=== PATIENT | male | born 1935 | race Caucasian/White ===

== ENCOUNTER → 2023-06-19 06:53 | Outpatient (REF) | payer MEDICARE, BC, SELFPAY ==
[2023-06-19 08:30] LABS: % Basophils 0.8 % (0-2); % Eosinophils 7.4 % (0-6); % Immature Granulocytes 0.2 % (0-0.5); % Lymphocytes 28.6 % (20.5-51.1); Absolute Eosinophils 0.4 10^3/uL (0-0.7); Absolute Lymphocytes 1.5 10^3/uL (1.2-3.4); Absolute Monocytes 0.5 10^3/uL (0.1-0.6); Absolute Neutrophils 2.8 10^3/uL (1.4-6.5); Hematocrit 40.7 % (39.0-52.0); Hemoglobin 13.7 g/dL (13.0-18.0); Mean Corp Hgb Conc. 33.7 g/dL (33.0-37.0); Mean Corpuscular Hgb 29.5 pg (27.0-31.0); Mean Corpuscular Volume 87.7 fL (80.0-94.0); Mean Platelet Volume 10.1 fL (7.4-10.4); Nucleated Red Blood Cells % 0 % (-); Platelet Count 166 10^3/uL (130-400); Red Blood Cell Count 4.64 10^6/uL (4.70-6.10); Red Cell Dist. Width 13.3 % (11.5-14.5); White Blood Cell Count 5.1 10^3/uL (4.8-10.8)
[2023-06-19 09:14] LABS: TSH Reflex To Free T4 3.27 uIU/ml (0.47-4.68)
[2023-06-19 10:38] LABS: Folate 15.2 ng/ml (2.76-20); Vitamin B12 993 pg/ml (239-931)
[2023-06-24 13:41] LABS: Syphilis/T. pallidum Ab Reflex Negative (Negative)
== END ==
LOC: HWLAB 06:53
PROVIDERS: ATTENDING PHYSICIAN Internal Medicine
DX: R41.3 Other amnesia (principal)
CPT/HCPCS: 36415; 82607; 82746; 84443; 85025; 86780

== ENCOUNTER → 2023-08-15 10:43 | Outpatient (REF) | payer MEDICARE, BC, SELFPAY ==
[2023-08-15 14:15] LABS: Glycohemoglobin (HgbA1c) 6.5 % (4.0-5.6)
[2023-08-15 16:36] LABS: ALT (SGPT) 79 U/L (0-50); AST (SGOT) 32 U/L (17-59); Albumin 3.6 g/dl (3.5-5.0); Alkaline Phosphatase 143 U/L (38-126); Blood Urea Nitrogen 25 mg/dl (9-20); Calcium 9.8 mg/dl (8.4-10.2); Carbon Dioxide 26 mmol/L (22-30); Chloride 107 mmol/L (98-107); Glucose 102 mg/dl (70-99); HDL Cholesterol 43 mg/dl; LDL Cholesterol, Calculated 56 mg/dl; Potassium 4.1 mmol/L (3.5-5.1); Sodium 138 mmol/L (135-145); Total Bilirubin 0.7 mg/dl (0.2-1.3); Total Cholesterol 120 mg/dl (50-199); Total Protein 5.7 g/dl (6.3-8.2); Triglyceride 108 mg/dl (10-149); Very Low Density Lipoprotein 21 mg/dl (0-30); eGFR 58.17
[2023-08-15 17:07] LABS: PSA, Total - Diagnostic 6.55 ng/ml (0.0-4.0)
== END ==
LOC: HWLAB 10:43
PROVIDERS: ATTENDING PHYSICIAN Internal Medicine
DX: E78.5 Hyperlipidemia, unspecified (principal); R73.01 Impaired fasting glucose; Z85.46 Personal history of malignant neoplasm of prostate
CPT/HCPCS: 36415; 80053; 80061; 83036; 84153

== ENCOUNTER 2023-08-18 11:48 | Inpatient (IN) | payer MEDICARE, BC, SELFPAY ==
[2023-08-18 09:08] VITALS: BP 93/47; BMI 26.6
[2023-08-18 09:21] LABS: % Basophils 0.4 % (0-2); % Eosinophils 0.6 % (0-6); % Immature Granulocytes 0.3 % (0-0.5); % Lymphocytes 7.1 % (20.5-51.1); % Monocytes 9.9 % (1.7-9.3); % Neutrophils 81.7 % (42.2-75.2); Absolute Basophils 0.1 10^3/uL (0-0.2); Absolute Eosinophils 0.1 10^3/uL (0-0.7); Absolute Monocytes 1.4 10^3/uL (0.1-0.6); Absolute Neutrophils 11.3 10^3/uL (1.4-6.5); Hematocrit 39.1 % (39.0-52.0); Hemoglobin 12.9 g/dL (13.0-18.0); Mean Corpuscular Hgb 28.8 pg (27.0-31.0); Mean Corpuscular Volume 87.3 fL (80.0-94.0); Mean Platelet Volume 11.1 fL (7.4-10.4); Nucleated Red Blood Cells % 0 % (-); Platelet Count 222 10^3/uL (130-400); Red Blood Cell Count 4.48 10^6/uL (4.70-6.10); Red Cell Dist. Width 14.3 % (11.5-14.5); White Blood Cell Count 13.9 10^3/uL (4.8-10.8)
[2023-08-18 09:32] LABS: ALT (SGPT) 36 U/L (0-50); AST (SGOT) 22 U/L (17-59); Alkaline Phosphatase 116 U/L (38-126); Blood Urea Nitrogen 37 mg/dl (9-20); Calcium 9.3 mg/dl (8.4-10.2); Carbon Dioxide 24 mmol/L (22-30); Chloride 103 mmol/L (98-107); Estimated Creatinine Clearance 30 ml/min; Glucose 118 mg/dl (70-99); Potassium 3.9 mmol/L (3.5-5.1); Sodium 136 mmol/L (135-145); Total Bilirubin 0.8 mg/dl (0.2-1.3); eGFR 41.19
[2023-08-18 09:40] LABS: Lipase 30 U/L (23-300)
--- NOTE | 2023-08-18 09:55 | ED.GENMED ---
History of Present Illness
General
Chief Complaint: Weakness
Source: patient
Exam Limitations: none
Time Seen by Provider: 08/18/23 09:42
Nursing documentation reviewed up to this point in time: agreed with
Travel History
Have you had any contact with someone who has COVID-19?: No
Do you have any symptoms of coronavirus? Fever > 100 degrees, chills, cough, shortness of breath, sore throat, loss of taste or smell, muscle aches, or headache?: No
History of Present Illness
History of Present Illness:
Patient presents to ED secondary to persistent diarrhea with decreased appetite and generalized weakness over the past 1 week. Patient states that his symptoms started 2 days after eating at a local restaurant, consisting of shrimp and cheese.
Denies fever or chills. Denies nausea or vomiting. Denies rash. Denies headache. Denies recent change in medications. Denies recent treatment with antibiotics. Denies previous history of similar symptoms. Denies sick contact. Denies recent
travel.
Past History
Past History
ED Past Medical History: HTN, Hypercholesterolemia and Other (sciatica)
ED Past Surgical History: Orthopedic (recurrent bursitis left knee)
Social History
Tobacco: Non-smoker
Personal: Single
Employment: Employed
Review of Systems
Review of Systems
Allergies reviewed?: Yes
All Other Systems: ROS reviewed and negative except as documented in HPI and ROS
Constitutional: Reports no symptoms; Denies fever or chills
EENT: Reports no symptoms
Respiratory: Reports no symptoms
Cardiac: Reports no symptoms
ABD/GI: Reports abdominal pain and diarrhea; Denies nausea or vomiting
: Reports no symptoms
Musculoskeletal: Reports no symptoms
Skin: Reports no symptoms
Neurological: Reports dizzy and weakness
Phy Exam
Physical Exam
Physical Exam:
Physical Exam
General: mild distress, not acutely ill. afebrile
Head: nc/at. eomi
Neck: supple. no meningeal signs.
Heart: s1/s2 regular rate and rhythm, no murmur. equal radial pulses.
Lungs: no acute respiratory distress. clear bilaterally
Abdomen: normal bowel sounds. mild left sided abdominal tenderness, LLQ>LUQ
Neuro: alert and oriented. no focal neurological deficits
Skin: no rash
Psychiatric: well kept. interactive and cooperative
Extremities: no edema. no calf tenderness.
Course
Orders/Labs/Results
Orders:
Orders
08/18/23 09:08
EKG [Electrocardiogram (*1)] Urgent
Reason for Study: Chest Pain
EKG- Treatment ONCE
08/18/23 09:13
Complete Blood Count/With Diff Urgent
Comprehensive Metabolic Panel Urgent
Lipase Urgent
Magnesium Urgent
Comment: ADD ON
08/18/23 09:53
Add On- LAB Urgent
Tests Added?: magnesium
0.9% Sodium Chloride 1000 ml [Nss] 1,000 ml IV BOLUS
08/18/23 09:54
CT Abd/pel Without Iv Or Oral Urgent
Comment:
Reason For Exam: diarrhea with left sided abd pain
08/18/23 Lunch
Clear Liquid
At Your Request: Full Participation
Does patient need a safe tray?: No
08/18/23 10:33
0.9% Sodium Chloride 500 ml [Nss] 500 ml IV BOLUS
08/18/23 10:40
Piperacillin/Tazo 3.375 Gram [Zosyn] 3.375 gram in 50 ml IV NOW
08/18/23 11:27
Admit/Transfer Patient As Directed
Co-Sign Provider:
Level of Care: Inpatient admission
Assign to:: Telemetry
Physician / Group: Ruthie
Diagnosis: Colitis, JAKE
Reason for Telemetry: Arrhythmia
Date to Stop Telemetry: 08/21/23
Time to Stop Telemetry: 11:00
Reason for Hospitalization: Above
Expected length of stay greater than two midnights?: Yes
ELOS- Estimated Length of Stay in days: 2
I certify the patient meets the requirements for IP care: Yes
08/18/23 11:31
Code Status As Directed
Resuscitation Status: Full Code
08/18/23 14:49
Piperacillin/Tazo 3.375 Gram [Zosyn] 3.375 gram in 50 ml IV Q6H
08/18/23 14:49
DX Deep Vein Thrombosis Video Routine
08/18/23 15:00
Aspirin Low Dose EC [Aspir Low (Enteric Coated)] 81 mg PO DAILY
Duloxetine Delayed Release [Cymbalta Delayed Release] 20 mg PO DAILY
Lactated Ringers [Lr] 1,000 ml IV 85 mls/hr
08/18/23 17:02
Norovirus by PCR Urgent
MARCO Source: Feces/Stool
Specimen Description:
Date Specimen was Collected: 08/18/23
Time Specimen was Collected: 17:01
STOOL [C difficile Antigen & Toxins] Urgent
MARCO Source: Feces/Stool
Specimen Description:
Date Specimen was Collected: 08/18/23
Time Specimen was Collected: 17:01
Stool Culture Urgent
MARCO Source: Feces/Stool
Specimen Description:
Date Specimen was Collected: 08/18/23
Time Specimen was Collected: 17:01
08/18/23 18:00
Atorvastatin [Lipitor] 80 mg PO QPM
08/18/23 20:00
Heparin 5,000 units SC Q12
08/19/23 04:26
CBC/With Diff [Complete Blood Count/With Diff] IN AM
CMP [Comprehensive Metabolic Panel] IN AM
08/19/23 08:00
Pantoprazole [Protonix] 40 mg PO DAILY
08/21/23 11:00
DC Protocol for Telemetry ONCE
Abnormal Lab Results
08/18/23
09:13
WBC 13.9 H 10^3/uL
(4.8-10.8)
RBC 4.48 L 10^6/uL
(4.70-6.10)
Hgb 12.9 L g/dL
(13.0-18.0)
MPV 11.1 H fL
(7.4-10.4)
Absolute Neuts (auto) 11.3 H 10^3/uL
(1.4-6.5)
Absolute Lymphs (auto) 1.0 L 10^3/uL
(1.2-3.4)
Absolute Monos (auto) 1.4 H 10^3/uL
(0.1-0.6)
Neutrophils % 81.7 H %
(42.2-75.2)
Lymphocytes % 7.1 L %
(20.5-51.1)
Monocytes % 9.9 H %
(1.7-9.3)
BUN 37 H mg/dl
(9-20)
Creatinine 1.6 H mg/dL
(0.7-1.3)
Glucose 118 H mg/dl
(70-99)
Total Protein 5.0 L g/dl
(6.3-8.2)
Albumin 3.0 L g/dl
(3.5-5.0)
08/18/23 09:13
08/18/23 09:13
Vital Signs
Initial and Last Documented VS:
Initial Vital Signs
Temp Pulse Resp BP Pulse Ox
97.7 F 85 20 93/47 93
08/18/23 09:08 08/18/23 09:08 08/18/23 09:08 08/18/23 09:08 08/18/23 09:08
Last Documented Vital Signs
Temp Pulse Resp BP Pulse Ox
97.9 F 85 18 104/55 98
08/19/23 07:10 08/19/23 07:10 08/19/23 07:10 08/19/23 07:10 08/19/23 07:10
MDM/Problems Addressed
MDM/Problems Addressed:
History and exam concerning for profound weakness, likely secondary to dehydration from ongoing diarrhea. Secondary to mild leukocytosis along with left-sided abdominal discomfort on exam, will obtain CT abdomen pelvis.
Stool culture pending.
Patient will be admitted for IV antibiotics and further treatment, as needed.
*Critical Care Note
Total Time (30-74mins, 75-104mins- exclusive of procedures): Not Applicable
ED Attending Note
-
Portions of this chart may have been created with voice recognition software.� Occasional wrong word or��sound alike� substitutions may have occurred due to the inherent limitations of voice recognition software.
Discharge Plan
Departure
Patient Disposition: Admit
Date of Disposition: 08/18/23
Time of Disposition: 10:01
Presentation/result/management discussed w/ accepting MD/DO: Hospitalist
Discharge Problem:
Dehydration, Acute kidney injury, Diarrhea
Interventions
Interventions:
*Risk Screen - Suicide Last Done: 08/18/23 09:10
*Neglect/Abuse Screening Last Done: 08/18/23 09:10
ED- Fall Risk Assessment Last Done: 08/18/23 15:18
*ED COVID-19 Vaccine History Last Done: 08/18/23 09:09
*Nursing Disposition Last Done: 08/18/23 15:18
ED- Cardiac Assessment Last Done: 08/18/23 11:52
ED- Neurological Assessment Last Done: 08/18/23 11:52
ED- Pulmonary Assessment Last Done: 08/18/23 11:52
Discharge Date and Time
Discharge Date/Time: 08/18/23 15:21
[2023-08-18] MEDS: NSS 1000 IV (09:59)
[2023-08-18 10:05] VITALS: BP 87/54
[2023-08-18 10:35] LABS: Magnesium 1.8 mg/dl (1.6-2.3)
[2023-08-18 10:36] VITALS: BP 116/74
[2023-08-18] MEDS: ZOSYN 50 IV ×2 (11:39→17:19)
[2023-08-18] MEDS: NSS 500 IV (11:39)
--- NOTE | 2023-08-18 11:45 | HPS.HSE ---
Family Physician
-
Family Physician: NOT KNOW UNKNOWN - PT DOES
Chief Complaint
-
Generalized fatigue.
Abdominal discomfort with diarrhea.
History of Present Illness
Patient is 88 years old male with history of aortic stenosis status post aortic valve replacement, postoperative A-fib, hypertension who presents to the emergency room because of the generalized fatigue for few days. Patient reports abdominal
discomfort and multiple loose stools/diarrhea over the. Over the last 5 to 7 days. He denies any fever. Denies any nausea vomiting hematemesis or hematochezia. He reports eating in a local restaurant over a week ago. He denies any recent
travel, sick contacts. Denies any antibiotics administration.
While in the emergency room patient presented to be with mild hypotension. Further workup was consistent with acute kidney injury and elevated creatinine of 1.6.
He underwent CT scan of the abdomen and pelvis without contrast with findings consistent with pancolitis.
Medical History
Past Medical History
Past Medical History: Reports Arrhythmia (Postoperative A-fib) and HTN
Past Surgical History: Reports Other (Aortic valve stenosis status post AVR 2017)
Social History
Tobacco: Former Smoker
Family History
Family History: Not pertinent
Allergies / Home Medications
Allergies reflects when Allergies were last updated in [employer].
Home Medications with original date entered in [employer]
Allergy/Medication List:
Allergies
Allergy/AdvReac Type Severity Reaction Status Date / Time
tramadol Allergy Severe Rash, Verified 06/23/17 14:26
Restlessness,
'I thought
I qwas
going to
'.
oxycodone [From Roxicodone] AdvReac Mild Confusion Verified 06/23/17 14:27
Home Medications
aspirin 81 mg tablet,delayed release 81 mg PO DAILY 08/18/23
atorvastatin 80 mg tablet (Lipitor) 80 mg PO QPM 08/18/23
cholecalciferol (vitamin D3) 25 mcg (1,000 unit) tablet (Vitamin D3) 25 mcg PO DAILY 08/18/23
cyanocobalamin (vitamin B-12) 1,000 mcg tablet 1,000 mcg PO DAILY 08/18/23
duloxetine 20 mg capsule,delayed release (Cymbalta) 20 mg PO DAILY 08/18/23
lisinopril 20 mg tablet 20 mg PO DAILY 08/18/23
omeprazole 40 mg capsule,delayed release 40 mg PO DAILY 08/18/23
vitamins A,C,R-ybgn-etapze 2,148 mcg-113 mg-45 mg-17.4 mg tablet (PreserVision AREDS) 1 tab PO DAILY 08/18/23
Review of Systems
-
A 12 point ROS was completed and negative except as noted: Yes
Abdomen/GI: Reports See HPI
Physical Exam
Vital Signs
Vital Signs
Temp Pulse Resp BP Pulse Ox
97.7 F 79 20 116/74 93
08/18/23 09:08 08/18/23 10:36 08/18/23 09:08 08/18/23 10:36 08/18/23 09:08
Physical Exam
General: Well Developed, Well Nourished and No Apparent Distress
HEENT: NormoCephalic, Moist mucous membranes and Atraumatic
Respiratory: Clear
Cardiac: S1/S2 and Regular Rhythm; No Murmur or Rub
GI: Soft, Non Tender, Non Distended and Normal Bowel Sounds; No Organomegaly
Rectal: Deferred by Provider
Musculoskeletal: No Clubbing, No Cyanosis and No Edema
Skin: No Rash
Neuro: Nonfocal/grossly intact
Laboratory Results
-
08/18/23 09:13
08/18/23 09:13
Laboratory Results
Total Bilirubin 0.8 mg/dl (0.2-1.3) 08/18/23 09:13
AST 22 U/L (17-59) 04/08/24 09:13
ALT 36 U/L (0-50) 08/18/23 09:13
Alkaline Phosphatase 116 U/L (38-126) 08/18/23 09:13
Lipase 30 U/L (23-300) 08/18/23 09:13
Data Reviewed
-
CT Scan: Report Reviewed by me
Lab Data: Labs Reviewed by me
Impression/Plan
-
IMPRESSION:
Presentation with generalized fatigue, persistent abdominal discomfort and diarrhea.
Acute pancolitis.
Hypotension likely secondary to dehydration and antihypertensive medication.
Acute kidney injury.
Conditions prior to admission:
Aortic stenosis status post AVR (bovine tissue valve 2017)
Postoperative atrial fibrillation.
Essential hypertension
Dyslipidemia
History of TIA 2016
Former tobacco use.
History of prostate carcinoma status post radiation therapy 2002
Sciatica.
History of basal cell carcinoma status post Mohs procedure
Cataract.
History of postop delirium.
PLAN:
Acute colitis/pancolitis
Likely infectious, less likely ischemic given involvement.
No evidence of sepsis.
Abdominal examination benign with very mild diffuse tenderness.
Patient does not appear toxic.
Stool culture, stool for C. difficile and norovirus pending.
Empiric antibiotics: Zosyn.
IV hydration
Clear liquid diet
Hypotension likely due to volume loss with diarrhea as well as NAIMA inhibitor
Acute kidney injury
Hold lisinopril
Gentle hydration with lactated Ringer
Follow electrolytes and BP trend.
History of postoperative A-fib
In sinus rhythm
Continue telemetry monitoring
Aortic stenosis status post bioprosthetic AVR 2017
Monitor volume status closely with IV hydration
Most recent echocardiogram with preserved biventricular function.
DVT prophylaxis heparin
Full code.
[2023-08-18] MEDS: LR 1000 IV (15:14)
[2023-08-18 15:27] VITALS: BMI 26.2
--- NOTE | 2023-08-18 15:30 | PTCARENOTE ---
Received pt from ED, VSS, ambulated to the bed with this RN, pt resting comfortably in bed at this time.
[2023-08-18 15:31] VITALS: BP 131/75
[2023-08-18] MEDS: ASPIR LOW (ENTERIC COATED) 81 MG PO (15:46)
[2023-08-18] MEDS: CYMBALTA DELAYED RELEASE 20 MG PO (15:46)
[2023-08-18] MEDS: LIPITOR PO (17:11)
[2023-08-18 19:36] VITALS: BP 121/56
[2023-08-18] MEDS: HEPARIN 5000 UNITS SC (21:35)
[2023-08-18] MEDS: DIFICID 200 MG PO (21:36)
[2023-08-18 23:34] VITALS: BP 121/48
[2023-08-19] VITALS (7 sets, daily range): BP systolic 87–127; BP diastolic 46–63
[2023-08-19 05:30] LABS: % Basophils 0.2 % (0-2); % Eosinophils 0.4 % (0-6); % Immature Granulocytes 0.7 % (0-0.5); % Lymphocytes 5.1 % (20.5-51.1); % Neutrophils 85.6 % (42.2-75.2); Absolute Eosinophils 0.1 10^3/uL (0-0.7); Absolute Immature Granulocytes 0.1 10^3/uL (0-0.05); Absolute Lymphocytes 0.7 10^3/uL (1.2-3.4); Absolute Monocytes 1.1 10^3/uL (0.1-0.6); Absolute Neutrophils 11.3 10^3/uL (1.4-6.5); Hematocrit 34.9 % (39.0-52.0); Hemoglobin 11.3 g/dL (13.0-18.0); Mean Corp Hgb Conc. 32.4 g/dL (33.0-37.0); Mean Corpuscular Volume 86.6 fL (80.0-94.0); Mean Platelet Volume 11.3 fL (7.4-10.4); Nucleated Red Blood Cells % 0 % (-); Platelet Count 200 10^3/uL (130-400); Red Blood Cell Count 4.03 10^6/uL (4.70-6.10); Red Cell Dist. Width 14.3 % (11.5-14.5); White Blood Cell Count 13.2 10^3/uL (4.8-10.8)
[2023-08-19 05:50] LABS: ALT (SGPT) 26 U/L (0-50); AST (SGOT) 21 U/L (17-59); Albumin 2.2 g/dl (3.5-5.0); Alkaline Phosphatase 98 U/L (38-126); Blood Urea Nitrogen 33 mg/dl (9-20); Calcium 8.5 mg/dl (8.4-10.2); Carbon Dioxide 23 mmol/L (22-30); Chloride 106 mmol/L (98-107); Estimated Creatinine Clearance 45 ml/min; Glucose 110 mg/dl (70-99); Potassium 3.9 mmol/L (3.5-5.1); Sodium 135 mmol/L (135-145); Total Bilirubin 0.5 mg/dl (0.2-1.3); Total Protein 4.1 g/dl (6.3-8.2); eGFR > 60.00
[2023-08-19] MEDS: ASPIR LOW (ENTERIC COATED) 81 MG PO (08:07)
[2023-08-19] MEDS: DIFICID 200 MG PO ×2 (08:07→21:00)
[2023-08-19] MEDS: CYMBALTA DELAYED RELEASE 20 MG PO (08:07)
[2023-08-19] MEDS: HEPARIN 5000 UNITS SC ×2 (08:08→21:00)
[2023-08-19] MEDS: PROTONIX 40 MG PO (08:08)
--- NOTE | 2023-08-19 13:43 | CM ---
Initial assessment completed with daughter. Patient lives alone in a 2nd floor condo in elevator building with 1 step to enter, was independent and drove [employer], has a RW, SPC and shower bars, no in-home services, no psychiatric hospitalizations.
Support system in 2 daughters, son and a friend that lives in condo building. Pharmacy is [facility] in [place] and PCP is Dr. De La O at the [facility]. Discharge plan of care: Awaiting therapy evaluation. Anticipate SNF vs HH.
--- NOTE | 2023-08-19 14:44 | W.PN.HOSP.TC ---
Today's Communication/Plan
-
Doing better
Improved hypotension.
Continue Dificid.
Advance diet.
Observe off IV fluids.
Assessment / Plan
Assessment / Plan
IMPRESSION:
Presentation with generalized fatigue, persistent abdominal discomfort and diarrhea.
Acute pancolitis secondary to C. difficile
Hypotension likely secondary to dehydration and antihypertensive medication.
Acute kidney injury.
Conditions prior to admission:
Aortic stenosis status post AVR (bovine tissue valve 2017)
Postoperative atrial fibrillation.
Essential hypertension
Dyslipidemia
History of TIA 2016
Former tobacco use.
History of prostate carcinoma status post radiation therapy 2002
Sciatica.
History of basal cell carcinoma status post Mohs procedure
Cataract.
History of postop delirium.
PLAN:
Acute colitis/pancolitis secondary to C. difficile. Mild to moderate.
No evidence for sepsis
JAKE shortly resolved with IV hydration
Initiated on Dificid on 08/17
Zosyn has been discontinued shortly postadmission.
Advance to low residue diet
Wean off IV fluids
Hypotension likely due to volume loss with diarrhea as well as NAIMA inhibitor
Acute kidney injury
Resolved with IV fluids. Creatinine back to baseline
Stop IV fluids
Hold lisinopril for another 24 hours monitoring BP and output. Reintroduce on 08/19.
History of postoperative A-fib
In sinus rhythm
Continue telemetry monitoring
Aortic stenosis status post bioprosthetic AVR 2017
Monitor volume status closely with IV hydration
Most recent echocardiogram with preserved biventricular function.
DVT prophylaxis heparin
Full code.
Anticipated Discharge: 24 - 48 hours
Subjective/Interval History
-
Date of Service: August 19, 2023
Objective Data
-
Labs:
Laboratory Results
08/19/23
04:26
WBC 13.2 H
Hgb 11.3 L
Hct 34.9 L
Plt Count 200
Sodium 135
Potassium 3.9
Chloride 106
Carbon Dioxide 23
BUN 33 H
Creatinine 1.1
Glucose 110 H
Calcium 8.5
Total Bilirubin 0.5
AST 21
ALT 26
Alkaline Phosphatase 98
Vital Signs:
Vital Signs
Temp Pulse Resp BP Pulse Ox
97.6 F 70 16 104/53 99
08/19/23 10:52 08/19/23 10:52 08/19/23 10:52 08/19/23 10:52 08/19/23 10:52
I&O
08/18/23 08/19/23 08/20/23
06:59 06:59 06:59
Intake Total 360 / 360
Balance 360 / 360
Physical Exam
-
General: Well Developed and No Apparent Distress
HEENT: Normocephalic, Atraumatic and Moist Mucous Membranes
Respiratory: Clear to Auscultation
Cardiac: Regular Rhythm and S1/S2; Negative Murmur, Rub or Gallop
GI: Soft, Nontender, Nondistended and Normal Bowel Sounds; Negative Organomegaly
Rectal: Deferred by Provider
Musculoskeletal: No Clubbing, No Cyanosis and No Edema
Skin: Negative Rash
Neuro: Nonfocal/Grossly Intact
[2023-08-19] MEDS: LIPITOR 80 MG PO (17:07)
[2023-08-20] VITALS (8 sets, daily range): BP systolic 102–117; BP diastolic 54–69
[2023-08-20 06:11] LABS: % Basophils 0.4 % (0-2); % Immature Granulocytes 0.6 % (0-0.5); % Lymphocytes 6.4 % (20.5-51.1); % Neutrophils 84.6 % (42.2-75.2); Absolute Basophils 0.1 10^3/uL (0-0.2); Absolute Eosinophils 0.1 10^3/uL (0-0.7); Absolute Immature Granulocytes 0.1 10^3/uL (0-0.05); Absolute Lymphocytes 0.9 10^3/uL (1.2-3.4); Absolute Neutrophils 11.6 10^3/uL (1.4-6.5); Hematocrit 35.3 % (39.0-52.0); Hemoglobin 11.8 g/dL (13.0-18.0); Mean Corp Hgb Conc. 33.4 g/dL (33.0-37.0); Mean Corpuscular Hgb 28.3 pg (27.0-31.0); Mean Corpuscular Volume 84.7 fL (80.0-94.0); Mean Platelet Volume 11.6 fL (7.4-10.4); Nucleated Red Blood Cells % 0 % (-); Platelet Count 218 10^3/uL (130-400); Red Blood Cell Count 4.17 10^6/uL (4.70-6.10); Red Cell Dist. Width 14.3 % (11.5-14.5); White Blood Cell Count 13.7 10^3/uL (4.8-10.8)
[2023-08-20 06:29] LABS: Blood Urea Nitrogen 34 mg/dl (9-20); Calcium 8.5 mg/dl (8.4-10.2); Carbon Dioxide 21 mmol/L (22-30); Chloride 109 mmol/L (98-107); Estimated Creatinine Clearance 45 ml/min; Glucose 94 mg/dl (70-99); Potassium 3.6 mmol/L (3.5-5.1); Sodium 133 mmol/L (135-145); eGFR > 60.00
[2023-08-20] MEDS: ASPIR LOW (ENTERIC COATED) 81 MG PO (08:48)
[2023-08-20] MEDS: CYMBALTA DELAYED RELEASE 20 MG PO (08:48)
[2023-08-20] MEDS: HEPARIN 5000 UNITS SC ×2 (08:48→20:49)
[2023-08-20] MEDS: DIFICID 200 MG PO ×2 (08:48→20:48)
[2023-08-20] MEDS: PROTONIX 40 MG PO (08:49)
--- NOTE | 2023-08-20 15:04 | W.PN.HOSP.TC ---
Today's Communication/Plan
-
.
Assessment / Plan
Assessment / Plan
88-year-old male past medical history significant for aortic stenosis s/p AVR, A-fib, hypertension presented with fatigue, abdominal pain, diarrhea since [address] abdomen showed evidence of pancolitis.
IMPRESSION:
Presentation with generalized fatigue, persistent abdominal discomfort and diarrhea.
Acute pancolitis secondary to C. difficile
Hypotension likely secondary to dehydration and antihypertensive medication.
Acute kidney injury.
Conditions prior to admission:
Aortic stenosis status post AVR (bovine tissue valve 2017)
Postoperative atrial fibrillation.
Essential hypertension
Dyslipidemia
History of TIA 2016
Former tobacco use.
History of prostate carcinoma status post radiation therapy 2002
Sciatica.
History of basal cell carcinoma status post Mohs procedure
Cataract.
History of postop delirium.
PLAN:
#Acute colitis/pancolitis secondary to C. difficile. Mild to moderate.
Fidaxomicin started on 08/18/23
Zosyn has been discontinued shortly postadmission.
Advance to low residue diet
Wean off IV fluids
Discontinue PPI
Start Pepcid
#Hypotension likely due to volume loss with diarrhea as well as NAIMA inhibitor
#Acute kidney injury
Resolved with IV fluids. Creatinine back to baseline
Stop IV fluids
Hold lisinopril for another 24 hours monitoring BP and output.
#History of postoperative A-fib
In sinus rhythm
Continue telemetry monitoring
Aortic stenosis status post bioprosthetic AVR 2017
Monitor volume status closely with IV hydration
Most recent echocardiogram with preserved biventricular function.
#DVT prophylaxis heparin
Full code.
Anticipated Discharge: 24 - 48 hours
Subjective/Interval History
-
Date of Service: August 20, 2023
Patient feels very nauseous.
Objective Data
-
Labs:
Laboratory Results
08/20/23
05:19
WBC 13.7 H
Hgb 11.8 L
Hct 35.3 L
Plt Count 218
Sodium 133 L
Potassium 3.6
Chloride 109 H
Carbon Dioxide 21 L
BUN 34 H
Creatinine 1.1
Glucose 94
Calcium 8.5
Vital Signs:
Vital Signs
Temp Pulse Resp BP Pulse Ox
97.6 F 77 14 103/54 98
08/20/23 10:53 08/20/23 10:53 08/20/23 10:53 08/20/23 10:53 08/20/23 10:53
I&O
08/19/23 08/20/23 08/21/23
06:59 06:59 06:59
Intake Total 360 / 360 1500 / 1500
Balance 360 / 360 1500 / 1500
Review of Systems
-
All other systems: Reviewed and negative (Except as mentioned above)
Physical Exam
-
General: Well Developed and Well Nourished
HEENT: Normocephalic and Atraumatic
GI: Soft, Nondistended and Tender
--- NOTE | 2023-08-20 15:35 | W.PN.HOSP.TC ---
Today's Communication/Plan
-
Monitor oral intake
Monitor output and for recurrent nausea and emesis.
Continue Dificid
PPI has been discontinued
Assessment / Plan
Assessment / Plan
IMPRESSION:
Presentation with generalized fatigue, persistent abdominal discomfort and diarrhea.
Acute pancolitis secondary to C. difficile
Hypotension likely secondary to dehydration and antihypertensive medication.
Acute kidney injury.
Conditions prior to admission:
Aortic stenosis status post AVR (bovine tissue valve 2017)
Postoperative atrial fibrillation.
Essential hypertension
Dyslipidemia
History of TIA 2016
Former tobacco use.
History of prostate carcinoma status post radiation therapy 2002
Sciatica.
History of basal cell carcinoma status post Mohs procedure
Cataract.
History of postop delirium.
PLAN:
Acute colitis/pancolitis secondary to C. difficile. Mild to moderate.
No evidence for sepsis
JAKE shortly resolved with IV hydration
Initiated on Dificid on 08/17 with plan to complete total 10-day course of therapy
Zosyn has been discontinued shortly postadmission.
Advanced to low residue diet
Wean off IV fluids as tolerates oral intake
Stop PPI/Protonix initiated H2 blockers/Pepcid
Hypotension likely due to volume loss with diarrhea as well as NAIMA inhibitor
Acute kidney injury
Resolved with IV fluids. Creatinine back to baseline
Has been off IV fluids
Hold lisinopril for another 24 hours monitoring BP and output. Reintroduce on 08/19.
History of postoperative A-fib
In sinus rhythm
Continue telemetry monitoring
Aortic stenosis status post bioprosthetic AVR 2017
Monitor volume status closely with IV hydration
Most recent echocardiogram with preserved biventricular function.
DVT prophylaxis heparin
Full code.
Anticipated Discharge: 24 - 48 hours
Subjective/Interval History
-
Date of Service: August 20, 2023
Objective Data
-
Labs:
Laboratory Results
08/20/23
05:19
WBC 13.7 H
Hgb 11.8 L
Hct 35.3 L
Plt Count 218
Sodium 133 L
Potassium 3.6
Chloride 109 H
Carbon Dioxide 21 L
BUN 34 H
Creatinine 1.1
Glucose 94
Calcium 8.5
Vital Signs:
Vital Signs
Temp Pulse Resp BP Pulse Ox
97.6 F 88 14 108/62 98
08/20/23 10:53 08/20/23 15:10 08/20/23 10:53 08/20/23 15:10 08/20/23 10:53
I&O
08/19/23 08/20/23 08/21/23
06:59 06:59 06:59
Intake Total 360 / 360 1500 / 1500
Balance 360 / 360 1500 / 1500
Physical Exam
-
General: Well Developed and No Apparent Distress
HEENT: Normocephalic, Atraumatic and Moist Mucous Membranes
Respiratory: Clear to Auscultation
Cardiac: Regular Rhythm and S1/S2; Negative Murmur, Rub or Gallop
GI: Soft, Nontender, Nondistended and Normal Bowel Sounds; Negative Organomegaly
Rectal: Deferred by Provider
Musculoskeletal: No Clubbing, No Cyanosis and No Edema
Skin: Negative Rash
Neuro: Nonfocal/Grossly Intact
[2023-08-20] MEDS: LIPITOR 80 MG PO (17:01)
[2023-08-21 03:10] VITALS: BP 109/54
[2023-08-21 07:40] VITALS: BP 124/64
[2023-08-21] MEDS: DIFICID 200 MG PO ×2 (08:35→19:24)
[2023-08-21] MEDS: PEPCID 20 MG PO (08:35)
[2023-08-21] MEDS: HEPARIN 5000 UNITS SC ×2 (08:35→19:25)
[2023-08-21] MEDS: CYMBALTA DELAYED RELEASE 20 MG PO (08:35)
[2023-08-21] MEDS: ASPIR LOW (ENTERIC COATED) 81 MG PO (08:35)
--- NOTE | 2023-08-21 10:26 | W.PN.HOSP.TC ---
Addendum entered and electronically signed by Kieran Hendricks MD 08/21/23 16:40:
Patient seen
Examined
Discussed with resident
Impression/plan:
C. difficile colitis/pancolitis.
Acute kidney injury secondary to prerenal causes with GI losses secondary to C. difficile colitis.
Clinically improved with improvement of abdominal pain discomfort and diarrhea.
Continue Dificid.
Diet has been advanced with improvement of nausea.
Acute kidney injury resolved.
Severely deconditioned
Physical therapy evaluation with assisted facility placement.
Original Note:
Today's Communication/Plan
-
.
Assessment / Plan
Assessment / Plan
88-year-old male past medical history significant for aortic stenosis s/p AVR, A-fib, hypertension presented with fatigue, abdominal pain, diarrhea since [address] abdomen showed evidence of pancolitis.
IMPRESSION:
Presentation with generalized fatigue, persistent abdominal discomfort and diarrhea.
Acute pancolitis secondary to C. difficile
Hypotension likely secondary to dehydration and antihypertensive medication.
Acute kidney injury.
Conditions prior to admission:
Aortic stenosis s/p AVR (bovine tissue valve 2017)
Postoperative atrial fibrillation.
Essential hypertension
Dyslipidemia
History of TIA 2016
Former tobacco use.
History of prostate carcinoma status post radiation therapy 2002
Sciatica.
H/O basal cell carcinoma s/p Mohs procedure
Cataract.
History of postop delirium.
PLAN:
#Acute colitis/pancolitis secondary to C. difficile. moderate.
Fidaxomicin started on 08/18/23
Zosyn has been discontinued shortly postadmission.
Advanced to low residue diet
Discontinue PPI
Start Pepcid
#Hypotension likely due to volume loss with diarrhea as well as NAIMA inhibitor
#Acute kidney injury
Resolved with IV fluids. Creatinine back to baseline
Stop IV fluids
Hold lisinopril for another 24 hours monitoring BP and output.
#History of postoperative A-fib
In sinus rhythm
Continue telemetry monitoring
#Aortic stenosis status post bioprosthetic AVR 2017
Monitor volume status closely with IV hydration
Most recent echocardiogram with preserved biventricular function.
#DVT prophylaxis heparin
Anticipated Discharge: Within 24 hours
Subjective/Interval History
-
Date of Service: August 21, 2023
Patient does not have nausea/vomiting. Patient reports having ongoing loose stools, 2 episodes in the morning today. No abdominal pain.
Patient reports feeling very weak.
Objective Data
-
Vital Signs:
Vital Signs
Temp Pulse Resp BP Pulse Ox
97.4 F 84 16 124/64 97
08/21/23 07:40 08/21/23 07:40 08/21/23 07:40 08/21/23 07:40 08/21/23 07:40
I&O
08/20/23 08/21/23 08/22/23
06:59 06:59 06:59
Intake Total 1500 / 1500 900 / 900
Balance 1500 / 1500 900 / 900
Review of Systems
-
All other systems: Reviewed and negative (Except as noted above)
Physical Exam
-
General: No Apparent Distress
HEENT: Normocephalic and Atraumatic
Respiratory: Clear to Auscultation
Cardiac: S1/S2
GI: Soft, Nontender, Nondistended and Normal Bowel Sounds
Neuro: Awake, Alert, Oriented and AO x 3
[2023-08-21 11:07] VITALS: BP 111/64
[2023-08-21 15:13] VITALS: BP 116/61
--- NOTE | 2023-08-21 15:16 | CM ---
Discharge Plan of Care: Therapy rec for STR. Spoke with son and daughter. [employer] list explained and provided. Preferences chosen and referrals forwarded.
[2023-08-21] MEDS: LIPITOR 80 MG PO (17:09)
--- NOTE | 2023-08-21 18:22 | PTCARENOTE ---
Pt. had one episode of nausea/ vomiting. Pt still having c/o of nausea. MD made aware. Zofran IV prn ordered per MD.
[2023-08-21] MEDS: ZOFRAN 4 MG IV (19:25)
[2023-08-21 23:15] VITALS: BP 96/46
[2023-08-22 07:15] VITALS: BP 109/60
[2023-08-22] MEDS: CYMBALTA DELAYED RELEASE 20 MG PO (08:00)
[2023-08-22] MEDS: HEPARIN 5000 UNITS SC ×2 (08:00→20:26)
[2023-08-22] MEDS: PEPCID 20 MG PO (08:00)
[2023-08-22] MEDS: ASPIR LOW (ENTERIC COATED) 81 MG PO (08:00)
[2023-08-22] MEDS: DIFICID 200 MG PO ×2 (08:00→20:26)
[2023-08-22 09:18] LABS: % Basophils 0.4 % (0-2); % Eosinophils 0.6 % (0-6); % Immature Granulocytes 0.5 % (0-0.5); % Monocytes 8.8 % (1.7-9.3); % Neutrophils 79.7 % (42.2-75.2); Absolute Basophils 0.1 10^3/uL (0-0.2); Absolute Eosinophils 0.1 10^3/uL (0-0.7); Absolute Immature Granulocytes 0.1 10^3/uL (0-0.05); Absolute Lymphocytes 1.2 10^3/uL (1.2-3.4); Absolute Neutrophils 9.2 10^3/uL (1.4-6.5); Hematocrit 39.9 % (39.0-52.0); Hemoglobin 13.3 g/dL (13.0-18.0); Mean Corp Hgb Conc. 33.3 g/dL (33.0-37.0); Mean Corpuscular Hgb 28.3 pg (27.0-31.0); Mean Corpuscular Volume 84.9 fL (80.0-94.0); Mean Platelet Volume 11.4 fL (7.4-10.4); Nucleated Red Blood Cells % 0 % (-); Platelet Count 270 10^3/uL (130-400); Red Cell Dist. Width 14.6 % (11.5-14.5); White Blood Cell Count 11.6 10^3/uL (4.8-10.8)
--- NOTE | 2023-08-22 09:24 | W.PN.HOSP.TC ---
Addendum entered and electronically signed by Kieran Hendricks MD 08/22/23 15:27:
Patient seen and examined
Discussed with nursing
Discussed with resident
Discussed with patient's daughter over the phone.
Impression/plan:
Community-acquired C. difficile with pancolitis. Mild to moderate.
JAKE
Deconditioning.
Initiated on Dificid with improved abdominal discomfort and diarrhea.
Diet has been advanced, although with recurrent nausea and single episode of emesis over the last 24 hours.
Noted bounce back up creatinine at 1.9 with relative hypotension overnight
Continue Dificid
Monitor oral intake
Reinstate isotonic solution for hypotension
Follow BMP
Original Note:
Today's Communication/Plan
-
Restart IV fluids
Monitor BMP
Bladder scan
Assessment / Plan
Assessment / Plan
88-year-old male past medical history significant for aortic stenosis s/p AVR, A-fib, hypertension presented with fatigue, abdominal pain, diarrhea since [address] abdomen showed evidence of pancolitis.
IMPRESSION:
Presentation with generalized fatigue, persistent abdominal discomfort and diarrhea.
Acute pancolitis secondary to C. difficile
Hypotension likely secondary to dehydration and antihypertensive medication.
Acute kidney injury.
Conditions prior to admission:
Aortic stenosis s/p AVR (bovine tissue valve 2017)
Postoperative atrial fibrillation.
Essential hypertension
Dyslipidemia
History of TIA 2016
Former tobacco use.
History of prostate carcinoma status post radiation therapy 2002
Sciatica.
H/O basal cell carcinoma s/p Mohs procedure
Cataract.
History of postop delirium.
PLAN:
#Acute colitis/pancolitis secondary to C. difficile. moderate.
Fidaxomicin started on 08/18/23
Continue fidaxomicin
Zosyn has been discontinued shortly postadmission.
Advanced to low residue diet
Discontinue PPI
Start Pepcid
#Hypotension likely due to volume loss with diarrhea as well as NAIMA inhibitor
#Acute kidney injury
Creatinine 1.9/BUN 47 today
IV fluids restarted
Trend BMP
Hold lisinopril for another 24 hours monitoring BP and output.
bladder scan
#History of postoperative A-fib
In sinus rhythm
Continue telemetry monitoring
#Aortic stenosis status post bioprosthetic AVR 2017
Monitor volume status closely with IV hydration
Most recent echocardiogram with preserved biventricular function.
#DVT prophylaxis heparin
Anticipated Discharge: 24 - 48 hours
Subjective/Interval History
-
Date of Service: August 22, 2023
Patient feels better. No nausea/vomiting/diarrhea.
Objective Data
-
Labs:
Laboratory Results
08/22/23
08:36
WBC Pending
Hgb Pending
Hct Pending
Plt Count Pending
Sodium Pending
Potassium Pending
Chloride Pending
Carbon Dioxide Pending
BUN Pending
Creatinine Pending
Glucose Pending
Calcium Pending
Total Bilirubin Pending
AST Pending
ALT Pending
Alkaline Phosphatase Pending
Vital Signs:
Vital Signs
Temp Pulse Resp BP Pulse Ox
98.2 F 82 16 109/60 98
08/22/23 07:15 08/22/23 07:15 08/22/23 07:15 08/22/23 07:15 08/22/23 07:15
I&O
08/21/23 08/22/23 08/23/23
06:59 06:59 06:59
Intake Total 900 / 900 780 / 780
Balance 900 / 900 780 / 780
Review of Systems
-
All other systems: Reviewed and negative (Except as mentioned above)
Physical Exam
-
General: No Apparent Distress
HEENT: Normocephalic and Atraumatic
Respiratory: Clear to Auscultation
Cardiac: S1/S2
GI: Soft, Nontender, Nondistended and Normal Bowel Sounds
Neuro: Awake, Alert, Oriented and AO x 3
Psych: Calm
[2023-08-22 09:30] LABS: ALT (SGPT) 32 U/L (0-50); AST (SGOT) 38 U/L (17-59); Albumin 2.6 g/dl (3.5-5.0); Alkaline Phosphatase 102 U/L (38-126); Blood Urea Nitrogen 47 mg/dl (9-20); Calcium 9.2 mg/dl (8.4-10.2); Carbon Dioxide 20 mmol/L (22-30); Chloride 104 mmol/L (98-107); Estimated Creatinine Clearance 26 ml/min; Glucose 104 mg/dl (70-99); Potassium 3.8 mmol/L (3.5-5.1); Sodium 135 mmol/L (135-145); Total Bilirubin 0.6 mg/dl (0.2-1.3); Total Protein 4.7 g/dl (6.3-8.2); eGFR 33.51
--- NOTE | 2023-08-22 09:58 | W.DS.TRANS ---
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
-
Discharge Instructions:
Discharge Diagnosis/Procedures IMPRESSION:
Presentation with generalized fatigue,
persistent abdominal discomfort and diarrhea.
Acute pancolitis secondary to C. difficile
Hypotension likely secondary to dehydration and
antihypertensive medication.
Acute kidney injury.
Conditions prior to admission:
Aortic stenosis status post AVR (bovine tissue
valve 2018)
Postoperative atrial fibrillation.
Essential hypertension
Dyslipidemia
History of TIA 2016
Former tobacco use.
History of prostate carcinoma status post
radiation therapy 2002
Sciatica.
History of basal cell carcinoma status post Mohs
procedure
Cataract.
History of postop delirium.
Diet Regular
Instructions:
Stand-Alone Forms:
Changes to Home Medications: Yes
Discharge Medications:
DC Medications w/original date entered in [facility]
aspirin 81 mg tablet,delayed release 81 mg PO DAILY Blood Clot Prevention/Tx 08/18/23
atorvastatin 80 mg tablet (Lipitor) 80 mg PO QPM High Cholesterol 08/18/23
cholecalciferol (vitamin D3) 25 mcg (1,000 unit) tablet (Vitamin D3) 25 mcg PO DAILY Supplement 08/18/23
cyanocobalamin (vitamin B-12) 1,000 mcg tablet 1,000 mcg PO DAILY Supplement 08/18/23
duloxetine 20 mg capsule,delayed release (Cymbalta) 20 mg PO DAILY Mental Health/Anxiety 08/18/23
vitamins A,C,T-bqht-kkzuuy 2,148 mcg-113 mg-45 mg-17.4 mg tablet (PreserVision AREDS) 1 tab PO DAILY Supplement 08/18/23
famotidine 20 mg tablet 20 mg PO DAILY #30 tabs 08/22/23
fidaxomicin 200 mg tablet (Dificid) 200 mg PO BID #14 tabs 08/22/23
ondansetron HCl 4 mg tablet 4 mg PO Q8H PRN nausea and vomiting 24 hours #10 tabs 08/22/23
Home Medication Changes
Dificid to complete total of 10 days
Omeprazole and Lisinopril stopped
Pending Results: No
[2023-08-22] MEDS: NSS 1000 IV ×2 (10:41→20:26)
[2023-08-22 15:17] VITALS: BP 108/52
[2023-08-22] MEDS: LIPITOR 80 MG PO (17:03)
--- NOTE | 2023-08-22 17:17 | CM ---
Discharge Plan of Care: [facility] and rehab services when medically stable.
[2023-08-23 00:03] VITALS: BP 131/66
[2023-08-23 07:15] VITALS: BP 129/67
[2023-08-23 08:13] LABS: % Basophils 0.6 % (0-2); % Eosinophils 0.9 % (0-6); % Immature Granulocytes 0.7 % (0-0.5); % Lymphocytes 11.6 % (20.5-51.1); % Monocytes 9.1 % (1.7-9.3); % Neutrophils 77.1 % (42.2-75.2); Absolute Basophils 0.1 10^3/uL (0-0.2); Absolute Eosinophils 0.1 10^3/uL (0-0.7); Absolute Immature Granulocytes 0.1 10^3/uL (0-0.05); Absolute Lymphocytes 1.2 10^3/uL (1.2-3.4); Absolute Neutrophils 8.2 10^3/uL (1.4-6.5); Hematocrit 40.1 % (39.0-52.0); Mean Corp Hgb Conc. 32.4 g/dL (33.0-37.0); Mean Corpuscular Hgb 28.1 pg (27.0-31.0); Mean Corpuscular Volume 86.8 fL (80.0-94.0); Nucleated Red Blood Cells % 0 % (-); Platelet Count 235 10^3/uL (130-400); Red Blood Cell Count 4.62 10^6/uL (4.70-6.10); Red Cell Dist. Width 14.7 % (11.5-14.5); White Blood Cell Count 10.6 10^3/uL (4.8-10.8)
[2023-08-23] MEDS: CYMBALTA DELAYED RELEASE 20 MG PO (08:36)
[2023-08-23] MEDS: DIFICID 200 MG PO ×2 (08:36→21:21)
[2023-08-23] MEDS: PEPCID 20 MG PO (08:37)
[2023-08-23] MEDS: HEPARIN 5000 UNITS SC ×2 (08:37→21:20)
[2023-08-23] MEDS: ASPIR LOW (ENTERIC COATED) 81 MG PO (08:37)
[2023-08-23 08:43] LABS: ALT (SGPT) 30 U/L (0-50); AST (SGOT) 37 U/L (17-59); Albumin 2.4 g/dl (3.5-5.0); Alkaline Phosphatase 82 U/L (38-126); Blood Urea Nitrogen 48 mg/dl (9-20); Calcium 8.6 mg/dl (8.4-10.2); Carbon Dioxide 15 mmol/L (22-30); Chloride 113 mmol/L (98-107); Estimated Creatinine Clearance 29 ml/min; Glucose 78 mg/dl (70-99); Sodium 136 mmol/L (135-145); Total Bilirubin 0.4 mg/dl (0.2-1.3); Total Protein 4.4 g/dl (6.3-8.2)
--- NOTE | 2023-08-23 09:43 | W.PN.HOSP.TC ---
Today's Communication/Plan
-
Continue with IV fluids. Follow creatinine. Follow oral intake.
Assessment / Plan
Assessment / Plan
88-year-old male past medical history significant for aortic stenosis s/p AVR, A-fib, hypertension presented with fatigue, abdominal pain, diarrhea since [address] abdomen showed evidence of pancolitis.
IMPRESSION:
Presentation with generalized fatigue, persistent abdominal discomfort and diarrhea.
Acute pancolitis secondary to C. difficile
Hypotension likely secondary to dehydration and antihypertensive medication.
Acute kidney injury.
Conditions prior to admission:
Aortic stenosis s/p AVR (bovine tissue valve 2017)
Postoperative atrial fibrillation.
Essential hypertension
Dyslipidemia
History of TIA 2016
Former tobacco use.
History of prostate carcinoma status post radiation therapy 2002
Sciatica.
H/O basal cell carcinoma s/p Mohs procedure
Cataract.
History of postop delirium.
PLAN:
#Acute colitis/pancolitis secondary to C. difficile. moderate.
Fidaxomicin started on 08/18/23
Continue fidaxomicin
Zosyn has been discontinued shortly postadmission.
Advanced to low residue diet
Discontinue PPI
cw Pepcid
#Hypotension likely due to volume loss with diarrhea as well as NAIMA inhibitor
#Acute kidney injury -recurrent
Creatinine 1.7 today
cw IV fluids restarted
Trend BMP
Hold lisinopril for another 24 hours monitoring BP and output.
bladder scan
#History of postoperative A-fib
In sinus rhythm
Continue telemetry monitoring
#Aortic stenosis status post bioprosthetic AVR 2017
Monitor volume status closely with IV hydration
Most recent echocardiogram with preserved biventricular function.
#DVT prophylaxis heparin
Anticipated Discharge: 24 - 48 hours
Subjective/Interval History
-
Date of Service: August 23, 2023
No fever or chills. No abdominal pain. Decreasing frequency of stools but still stools are looser.
His main issue is nausea and poor oral intake. Nausea was preceding the admission.
Objective Data
-
Labs:
Laboratory Results
08/23/23
07:28
WBC 10.6
Hgb 13.0
Hct 40.1
Plt Count 235
Sodium 136
Potassium 4.0
Chloride 113 H
Carbon Dioxide 15 L
BUN 48 H
Creatinine 1.7 H
Glucose 78
Calcium 8.6
Total Bilirubin 0.4
AST 37
ALT 30
Alkaline Phosphatase 82
Vital Signs:
Vital Signs
Temp Pulse Resp BP Pulse Ox
97.7 F 82 14 129/67 98
08/23/23 07:15 08/23/23 07:15 08/23/23 07:15 08/23/23 07:15 08/23/23 07:15
I&O
08/22/23 08/23/23 08/24/23
06:59 06:59 06:59
Intake Total 780 / 780 1440 / 1440
Balance 780 / 780 1440 / 1440
Review of Systems
-
EENT: Denies Sore Throat
Respiratory: Denies Cough or Trouble Breathing
Cardiac: Denies Chest Pain
Neuro: Denies Dizzy
Physical Exam
-
General: No Apparent Distress and Other (nontoxic)
HEENT: Moist Mucous Membranes
Respiratory: Clear to Auscultation
Cardiac: Regular Rhythm and S1/S2
GI: Soft, Nontender, Nondistended and Normal Bowel Sounds
Neuro: AO x 3
Psych: Calm
Data Reviewed
-
Labs: Labs Reviewed by me
[2023-08-23] MEDS: D5/0.45%NACL 1000 IV ×2 (11:12→21:19)
[2023-08-23 15:15] VITALS: BP 142/63
[2023-08-23] MEDS: LIPITOR 80 MG PO (17:10)
[2023-08-23 23:26] VITALS: BP 128/60
[2023-08-24 07:15] VITALS: BP 127/71
[2023-08-24 07:52] LABS: Hematocrit 37.8 % (39.0-52.0); Hemoglobin 12.6 g/dL (13.0-18.0); Mean Corp Hgb Conc. 33.3 g/dL (33.0-37.0); Mean Corpuscular Hgb 28.4 pg (27.0-31.0); Mean Corpuscular Volume 85.1 fL (80.0-94.0); Mean Platelet Volume 11.3 fL (7.4-10.4); Platelet Count 215 10^3/uL (130-400); Red Blood Cell Count 4.44 10^6/uL (4.70-6.10); Red Cell Dist. Width 14.4 % (11.5-14.5); White Blood Cell Count 9.3 10^3/uL (4.8-10.8)
[2023-08-24 08:14] LABS: Blood Urea Nitrogen 40 mg/dl (9-20); Calcium 8.4 mg/dl (8.4-10.2); Carbon Dioxide 19 mmol/L (22-30); Chloride 111 mmol/L (98-107); Estimated Creatinine Clearance 45 ml/min; Glucose 113 mg/dl (70-99); Potassium 3.4 mmol/L (3.5-5.1); Sodium 134 mmol/L (135-145); eGFR > 60.00
[2023-08-24] MEDS: D5/0.45%NACL 1000 IV ×2 (08:28→17:44)
[2023-08-24] MEDS: PEPCID 20 MG PO (08:29)
[2023-08-24] MEDS: DIFICID 200 MG PO ×2 (08:29→20:57)
[2023-08-24] MEDS: ASPIR LOW (ENTERIC COATED) 81 MG PO (08:29)
[2023-08-24] MEDS: CYMBALTA DELAYED RELEASE 20 MG PO (08:29)
[2023-08-24] MEDS: HEPARIN 5000 UNITS SC ×2 (08:29→20:57)
--- NOTE | 2023-08-24 13:11 | W.PN.HOSP.TC ---
Today's Communication/Plan
-
Continue Pradaxa mycin
IV fluids after current bag
Follow oral intake
Follow electrolytes and creatinine
Assessment / Plan
Assessment / Plan
88-year-old male past medical history significant for aortic stenosis s/p AVR, A-fib, hypertension presented with fatigue, abdominal pain, diarrhea since [address] abdomen showed evidence of pancolitis.
IMPRESSION:
Presentation with generalized fatigue, persistent abdominal discomfort and diarrhea.
Acute pancolitis secondary to C. difficile
Hypotension likely secondary to dehydration and antihypertensive medication.
Acute kidney injury.
Conditions prior to admission:
Aortic stenosis s/p AVR (bovine tissue valve 2017)
Postoperative atrial fibrillation.
Essential hypertension
Dyslipidemia
History of TIA 2016
Former tobacco use.
History of prostate carcinoma status post radiation therapy 2002
Sciatica.
H/O basal cell carcinoma s/p Mohs procedure
Cataract.
History of postop delirium.
PLAN:
#Acute colitis/pancolitis secondary to C. difficile. moderate.
Fidaxomicin started on 08/18/23.Improving frequency of diarrhea;wbc normalized
Continue fidaxomicin
Zosyn has been discontinued shortly postadmission.
Advanced to low residue diet
Discontinue PPI
cw Pepcid
#Hypotension likely due to volume loss with diarrhea as well as NAIMA inhibitor- resolved
#Acute kidney injury -recurrent
Creatinine 1.1 .Improved back to baseline.
On IV fluids - will dc after current bag
Trend BMP
Hold lisinopril
#History of postoperative A-fib
In sinus rhythm
Continue telemetry monitoring
#Aortic stenosis status post bioprosthetic AVR 2017
Monitor volume status closely with IV hydration
Most recent echocardiogram with preserved biventricular function.
#DVT prophylaxis heparin
Anticipated Discharge: Within 24 hours
Subjective/Interval History
-
Date of Service: August 24, 2023
Feeling improved. No abdominal pain. Does not feel his abdomen is bloated. Decreasing frequency of diarrhea. Appetite so-so. But no nausea or emesis.
Objective Data
-
Labs:
Laboratory Results
08/24/23
07:02
WBC 9.3
Hgb 12.6 L
Hct 37.8 L
Plt Count 215
Sodium 134 L
Potassium 3.4 L
Chloride 111 H
Carbon Dioxide 19 L
BUN 40 H
Creatinine 1.1
Glucose 113 H
Calcium 8.4
Vital Signs:
Vital Signs
Temp Pulse Resp BP Pulse Ox
97.3 F 75 16 127/71 91
08/24/23 07:15 08/24/23 07:15 08/24/23 07:15 08/24/23 07:15 08/24/23 07:15
I&O
08/23/23 08/24/23 08/25/23
06:59 06:59 06:59
Intake Total 1440 / 1440 2099 / 2099 1200 / 1200
Balance 1440 / 1440 2099 / 2099 1200 / 1200
Review of Systems
-
Constitutional: Denies Fever or Chills
Respiratory: Denies Trouble Breathing
Cardiac: Denies Chest Pain
Neuro: Denies Dizzy
Physical Exam
-
General: No Apparent Distress
HEENT: Moist Mucous Membranes
Respiratory: Clear to Auscultation
Cardiac: Regular Rhythm and S1/S2
GI: Soft, Nontender, Nondistended and Normal Bowel Sounds
Neuro: AO x 3
Data Reviewed
-
Labs: Labs Reviewed by me
[2023-08-24 15:15] VITALS: BP 138/73
--- NOTE | 2023-08-24 15:56 | PTCARENOTE ---
pt has some diarrhea but not a significant amount, appears more weak and lethargic, poor appetite, IV fluids on going, family at bedside,. calling appropriately for help and using the RW.
[2023-08-24] MEDS: LIPITOR 80 MG PO (17:11)
[2023-08-24 23:27] VITALS: BP 133/71
[2023-08-25 05:36] LABS: Blood Urea Nitrogen 29 mg/dl (9-20); Calcium 8.2 mg/dl (8.4-10.2); Carbon Dioxide 21 mmol/L (22-30); Chloride 109 mmol/L (98-107); Estimated Creatinine Clearance 55 ml/min; Glucose 104 mg/dl (70-99); Potassium 3.3 mmol/L (3.5-5.1); Sodium 133 mmol/L (135-145); eGFR > 60.00
[2023-08-25 08:09] VITALS: BP 146/74
[2023-08-25] MEDS: PEPCID 20 MG PO (08:40)
[2023-08-25] MEDS: CYMBALTA DELAYED RELEASE 20 MG PO (08:40)
[2023-08-25] MEDS: ASPIR LOW (ENTERIC COATED) 81 MG PO (08:40)
[2023-08-25] MEDS: DIFICID 200 MG PO ×2 (08:41→19:55)
[2023-08-25] MEDS: HEPARIN 5000 UNITS SC ×2 (08:41→19:55)
[2023-08-25 10:25] VITALS: BP 126/51
--- NOTE | 2023-08-25 10:45 | W.PN.HOSP.TC ---
Addendum entered and electronically signed by Kieran Hendricks MD 08/25/23 14:27:
Patient seen and examined
Discussed with resident
Impression/plan:
Mild to moderate C. difficile colitis/pancolitis.
Acute kidney injury secondary to hypotension and GI losses upon presentation
Overall improving with improved abdominal pain, slowing diarrhea, normalized white count, improved creatinine.
Remains deconditioned with relatively low oral intake due to poor appetite
Hypokalemia noted.
Continue Dificid
Observe off IV fluids monitoring oral intake
Replete potassium
Essential hypertension.
Previously on lisinopril 20 mg daily, had been discontinued due to marginal BP.
Monitor blood pressure trend. Consider to reinstate lisinopril the lower dose or change to amlodipine.
Original Note:
Today's Communication/Plan
-
Continue fidaxomicin; continue to trend BMP
Assessment / Plan
Assessment / Plan
88-year-old male past medical history significant for aortic stenosis s/p AVR, A-fib, hypertension presented with fatigue, abdominal pain, diarrhea since [address] abdomen showed evidence of pancolitis.
IMPRESSION:
Presentation with generalized fatigue, persistent abdominal discomfort and diarrhea.
Acute pancolitis secondary to C. difficile
Hypotension likely secondary to dehydration and antihypertensive medication.
Acute kidney injury.
PLAN:
#Acute colitis/pancolitis secondary to C. difficile. moderate.
Fidaxomicin started on 08/18/23. Improving frequency of diarrhea; wbc normalized
Zosyn has been discontinued shortly postadmission.
Advanced to low residue diet
Continue Pepcid
Continue fidaxomicin
#Hypotension likely due to volume loss with diarrhea as well as NAIMA inhibitor- resolved
Acute kidney injury -recurrent
Creatinine improved; today 0.9
Discontinued fluids
Repleted potassium (3.3 today)
Trend BMP
#History of postoperative A-fib
In sinus rhythm
Continue telemetry monitoring
#Aortic stenosis status post bioprosthetic AVR 2017
Monitor volume status closely with IV hydration
Most recent echocardiogram with preserved biventricular function.
DVT prophylaxis: heparin
Full Code
Anticipated Discharge: 24 - 48 hours
Subjective/Interval History
-
Date of Service: August 25, 2023
Patient continues to have loose bowel movements; had 2 BM today.
Objective Data
-
Labs:
Laboratory Results
08/25/23
04:34
Sodium 133 L
Potassium 3.3 L
Chloride 109 H
Carbon Dioxide 21 L
BUN 29 H
Creatinine 0.9
Glucose 104 H
Calcium 8.2 L
Vital Signs:
Vital Signs
Temp Pulse Resp BP Pulse Ox
97.5 F 74 18 146/74 98
08/25/23 08:09 08/25/23 08:09 08/25/23 08:09 08/25/23 08:09 08/25/23 10:07
I&O
08/24/23 08/25/23 08/26/23
06:59 06:59 06:59
Intake Total 2099
Balance 2099
Review of Systems
-
History Source: Patient
All other systems: Reviewed and negative
Physical Exam
-
General: No Apparent Distress
HEENT: Normocephalic
Respiratory: Clear to Auscultation
Cardiac: Regular Rhythm and S1/S2; Negative Murmur
GI: Soft, Nontender and Nondistended
Musculoskeletal: No Edema
Neuro: Awake, Alert and Oriented
Psych: Intact Judgement/Insight
[2023-08-25] MEDS: KCL 40 MEQ PO (14:08)
[2023-08-25 15:11] VITALS: BP 152/74
[2023-08-25] MEDS: LIPITOR 80 MG PO (17:21)
--- NOTE | 2023-08-25 17:27 | CM ---
Discharge Plan of Care: [facility] when medically cleared.
[2023-08-25 23:16] VITALS: BP 117/69
[2023-08-26 07:50] VITALS: BP 127/75
[2023-08-26] MEDS: HEPARIN 5000 UNITS SC (08:03)
[2023-08-26] MEDS: PEPCID 20 MG PO (08:03)
[2023-08-26] MEDS: ASPIR LOW (ENTERIC COATED) 81 MG PO (08:03)
[2023-08-26] MEDS: DIFICID 200 MG PO (08:03)
[2023-08-26] MEDS: CYMBALTA DELAYED RELEASE 20 MG PO (08:03)
[2023-08-26 09:02] LABS: Blood Urea Nitrogen 26 mg/dl (9-20); Calcium 8.8 mg/dl (8.4-10.2); Carbon Dioxide 22 mmol/L (22-30); Chloride 109 mmol/L (98-107); Estimated Creatinine Clearance 55 ml/min; Glucose 88 mg/dl (70-99); Potassium 3.6 mmol/L (3.5-5.1); Sodium 134 mmol/L (135-145); eGFR > 60.00
--- NOTE | 2023-08-26 09:04 | W.PN.HOSP.TC ---
Addendum entered and electronically signed by Kieran Hendricks MD 08/26/23 17:04:
Patient seen and examined
Discussed with resident
Impression/plan:
Pancolitis secondary to C. difficile.
Acute kidney injury secondary to dehydration
Essential hypertension
Overall deconditioning
Improving on Dificid and to complete course total 10-day course.
Has been off IV fluids and is stable oral intake. Improved creatinine.
Improved hypokalemia.
As far as essential hypertension given marginal BP and JAKE has been off lisinopril upon discharge.
Monitor blood pressure trend as outpatient. Consider reintroduce NAIMA inhibition at the lower dose or possibly replace it with calcium channel lavinia such as amlodipine.
Original Note:
Today's Communication/Plan
-
Continue Dificid; discharge pending to SNF
Assessment / Plan
Assessment / Plan
88-year-old male past medical history significant for aortic stenosis s/p AVR, A-fib, hypertension presented with fatigue, abdominal pain, diarrhea since [address] abdomen showed evidence of pancolitis.
IMPRESSION:
Presentation with generalized fatigue, persistent abdominal discomfort and diarrhea.
Acute pancolitis secondary to C. difficile
Hypotension likely secondary to dehydration and antihypertensive medication.
Acute kidney injury.
PLAN:
#Acute colitis/pancolitis secondary to C. difficile. moderate.
-Fidaxomicin started on 08/18/23. Improving frequency of diarrhea; wbc normalized to 9.3 today
-Zosyn has been discontinued shortly postadmission.
-Advanced to low residue diet
-Continue Pepcid
-Continue fidaxomicin until 08/27 to finish 10 day course
-discharge pending today to SNF
#Hypotension likely due to volume loss with diarrhea as well as NAIMA inhibitor- resolved
-Acute kidney injury -recurrent
-Creatinine improved; today 0.9
-Discontinued fluids
-Repleted potassium, now is 3.6
#History of postoperative A-fib
-In sinus rhythm
-Continue telemetry monitoring
#Aortic stenosis status post bioprosthetic AVR 2017
-Monitor volume status closely with IV hydration
-Most recent echocardiogram with preserved biventricular function.
DVT prophylaxis: heparin
Full Code
Anticipated Discharge: Within 24 hours
Subjective/Interval History
-
Date of Service: August 26, 2023
Objective Data
-
Labs:
Laboratory Results
08/26/23
07:51
Sodium 134 L
Potassium 3.6
Chloride 109 H
Carbon Dioxide 22
BUN 26 H
Creatinine 0.9
Glucose 88
Calcium 8.8
Vital Signs:
Vital Signs
Temp Pulse Resp BP Pulse Ox
97.5 F 80 18 127/75 96
08/26/23 07:50 08/26/23 07:50 08/26/23 07:50 08/26/23 07:50 08/26/23 07:50
I&O
08/25/23 08/26/23 08/27/23
06:59 06:59 06:59
Intake Total 2039 960 / 960
Balance 2039 960 / 960
Review of Systems
-
History Source: Patient
All other systems: Reviewed and negative
Physical Exam
-
General: No Apparent Distress
HEENT: Normocephalic
Respiratory: Clear to Auscultation
Cardiac: Regular Rhythm and S1/S2; Negative Murmur
GI: Soft, Nontender and Nondistended
Musculoskeletal: No Edema
Neuro: Awake, Alert and Oriented
Psych: Calm
--- NOTE | 2023-08-26 09:04 | W.DS.TRANS ---
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
-
Discharge Instructions:
Discharge Diagnosis/Procedures IMPRESSION:
Presentation with generalized fatigue,
persistent abdominal discomfort and diarrhea.
Acute pancolitis secondary to C. difficile
Hypotension likely secondary to dehydration and
antihypertensive medication.
Acute kidney injury.
Conditions prior to admission:
Aortic stenosis status post AVR (bovine tissue
valve 2018)
Postoperative atrial fibrillation.
Essential hypertension
Dyslipidemia
History of TIA 2016
Former tobacco use.
History of prostate carcinoma status post
radiation therapy 2002
Sciatica.
History of basal cell carcinoma status post Mohs
procedure
Cataract.
History of postop delirium.
Diet Regular
Instructions:
Stand-Alone Forms:
Changes to Home Medications: Yes
Discharge Medications:
DC Medications w/original date entered in [facility]
aspirin 81 mg tablet,delayed release 81 mg PO DAILY Blood Clot Prevention/Tx 08/18/23
atorvastatin 80 mg tablet (Lipitor) 80 mg PO QPM High Cholesterol 08/18/23
cholecalciferol (vitamin D3) 25 mcg (1,000 unit) tablet (Vitamin D3) 25 mcg PO DAILY Supplement 08/18/23
cyanocobalamin (vitamin B-12) 1,000 mcg tablet 1,000 mcg PO DAILY Supplement 08/18/23
duloxetine 20 mg capsule,delayed release (Cymbalta) 20 mg PO DAILY Mental Health/Anxiety 08/18/23
vitamins A,C,F-begr-tlzvzu 2,148 mcg-113 mg-45 mg-17.4 mg tablet (PreserVision AREDS) 1 tab PO DAILY Supplement 08/18/23
famotidine 20 mg tablet 20 mg PO DAILY #30 tabs 08/22/23
fidaxomicin 200 mg tablet (Dificid) 200 mg PO BID #14 tabs 08/22/23
ondansetron HCl 4 mg tablet 4 mg PO Q8H PRN nausea and vomiting 24 hours #10 tabs 08/22/23
Home Medication Changes
Dificid 200mg PO BID, course finished on 08/27
Pending Results: No
--- NOTE | 2023-08-26 09:04 | W.DCSUMMARY ---
Documented by User: Abeba Kumari, Resident, 08/26/23 11:47
Discharge Summary
Discharge Data
Date of Admission: 08/18/23
Date of Discharge: 08/26/23
-
Pending Results: No
Hospital Course
Patient is 88 years old male with history of aortic stenosis status post aortic valve replacement, postoperative A-fib, hypertension who presents to the emergency room because of the generalized fatigue for few days, abdominal discomfort and
multiple loose stools/diarrhea over the last 5 to 7 days. Stool culture, stool for C. difficile and norovirus were ordered with empiric antibiotic Zosyn started. He had hypotension likely due to volume loss with diarrhea as well as NAIMA inhibitor so
IV fluids started with LR. CT Abd/Pel on 08/17 showed severe pancolitis, likely infectious or inflammatory. Bowel wall measures up to 1.5 cm in thickness. No evidence of pneumatosis intestinalis or extraluminal air. Stool cultures showed C.Diff and
Zosyn discontinued. Dificid started. Weaned off IV fluids and then started low residue diet. Protonix stopped an Pepcid initiated. He was previously on lisinopril 20 mg daily, had been discontinued due to marginal BP. Acute kidney injury secondary
to prerenal causes with creatinine 1.7, resolved with IV fluids and creatinine back to baseline. WBC count trended down. Patient was clinically improving and diet was advanced. Due to lower BP initially and patient's diet, lisinopril was
discontinued. He can be considered to restart lisinopril at lower dose of 10mg or amlodipine in outpatient. As now, BP is stable.
Discharged pending to SNF. At discharge, patient is to continue antibiotic course of Dificid until 08/27 to finish 10 day course.
Discharge Plan
-
Patient Disposition: Long-Term/SNF
Discharge Diagnosis/Procedures: IMPRESSION:
Presentation with generalized fatigue, persistent abdominal discomfort and diarrhea.
Acute pancolitis secondary to C. difficile
Hypotension likely secondary to dehydration and antihypertensive medication.
Acute kidney injury.
Conditions prior to admission:
Aortic stenosis status post AVR (bovine tissue valve 2017)
Postoperative atrial fibrillation.
Essential hypertension
Dyslipidemia
History of TIA 2016
Former tobacco use.
History of prostate carcinoma status post radiation therapy 2002
Sciatica.
History of basal cell carcinoma status post Mohs procedure
Cataract.
History of postop delirium.
Condition: Good
Diet: Regular
Referrals:
UNKNOWN - PT DOES,NOT KNOW [Family Provider] -
Prescriptions:
New
famotidine 20 mg Tablet
20 mg PO DAILY Qty: 30 0RF
ondansetron HCl 4 mg tablet
4 mg PO Q8H PRN (Reason: nausea and vomiting) 1 Days Qty: 10 0RF
Dificid 200 mg tablet
200 mg PO Q12H 2 Days Qty: 4 0RF
Rx Instructions:
Dificid 200mg PO twice daily until 08/27
Continued
atorvastatin [Lipitor] 80 mg Tablet
80 mg PO QPM
cyanocobalamin (vitamin B-12) 1,000 mcg Tablet
1,000 mcg PO DAILY
aspirin 81 mg Tablet,Delayed Release (Dr/Ec)
81 mg PO DAILY
duloxetine [Cymbalta] 20 mg Capsule,Delayed Release(Dr/Ec)
20 mg PO DAILY
cholecalciferol (vitamin D3) [Vitamin D3] 25 mcg (1,000 unit) Tablet
25 mcg PO DAILY
PreserVision AREDS 2,148 mcg-113 mg-45 mg-17.4mg Tablet
1 tab PO DAILY
Discontinued
lisinopril 20 mg Tablet
20 mg PO DAILY
omeprazole 40 mg Capsule,Delayed Release(Dr/Ec)
40 mg PO DAILY
Discharge Orders:
Discharge Patient (As Directed); Ordered 08/26/23
Ordered By: Abeba Kumari
Discharge Date and Time
Discharge Date/Time: 08/26/23 15:04
Print Language: [place] IRISH

Documented by User: Kieran Hendricks MD 08/26/23 17:02
Discharge Summary
Discharge Data
Date of Admission: 08/18/23
Date of Discharge: 08/26/23
Discharge Plan
-
Patient Disposition: Long-Term/SNF
Discharge Diagnosis/Procedures:
--- NOTE | 2023-08-26 12:27 | CM ---
Patient has been medically cleared for discharge to [facility] halfway and rehab services. Transport is scheduled for 2:30PM. Patient, son, admissions and team notified.
NURSE TO NURSE REPORT # [phone]
FAX # [phone]
[2023-08-26 13:12] VITALS: BP 117/67
== END 2023-08-26 15:04 | DRG 372 ==
LOC: 2 NORTH 11:48
PROVIDERS: Emergency Medicine; Internal Medicine; Student in an Organized Health Care Education/Training Program; ADMITTING PHYSICIAN Internal Medicine; EMERGENCY PHYSICIAN Emergency Medicine
DX: A04.72 Enterocolitis due to Clostridium difficile, not specified as recurrent (principal); N17.9 Acute kidney failure, unspecified; E78.00 Pure hypercholesterolemia, unspecified; I10 Essential (primary) hypertension; M54.30 Sciatica, unspecified side; E86.0 Dehydration; E87.6 Hypokalemia; I95.89 Other hypotension; Z95.3 Presence of xenogenic heart valve; Z87.891 Personal history of nicotine dependence; Z88.5 Allergy status to narcotic agent; Z86.73 Personal history of transient ischemic attack (TIA), and cerebral infarction without residual deficits; Z85.46 Personal history of malignant neoplasm of prostate; Z92.3 Personal history of irradiation; Z85.828 Personal history of other malignant neoplasm of skin
CPT/HCPCS: 36415; 74176; 80048; 80053; 80061; 83036; 83690; 83735; 84153; 85025; 85027; 87045; 87046; 87077; 87324; 87427; 87449; 87798; 93005; 96360; 96361; 97116; 97163; 97530; 99285

== ENCOUNTER → 2023-09-01 12:08 | Outpatient (REF) | payer OTHER, MEDICARE, BC, SELFPAY ==
[2023-09-01 13:11] LABS: % Basophils 0.6 % (0-2); % Eosinophils 4.7 % (0-6); % Immature Granulocytes 0.3 % (0-0.5); % Lymphocytes 23.7 % (20.5-51.1); % Monocytes 10.9 % (1.7-9.3); % Neutrophils 59.8 % (42.2-75.2); Absolute Eosinophils 0.3 10^3/uL (0-0.7); Absolute Lymphocytes 1.5 10^3/uL (1.2-3.4); Absolute Monocytes 0.7 10^3/uL (0.1-0.6); Absolute Neutrophils 3.9 10^3/uL (1.4-6.5); Hematocrit 33.1 % (39.0-52.0); Hemoglobin 10.7 g/dL (13.0-18.0); Mean Corp Hgb Conc. 32.3 g/dL (33.0-37.0); Mean Corpuscular Hgb 28.1 pg (27.0-31.0); Mean Corpuscular Volume 86.9 fL (80.0-94.0); Mean Platelet Volume 11.4 fL (7.4-10.4); Nucleated Red Blood Cells % 0 % (-); Platelet Count 197 10^3/uL (130-400); Red Blood Cell Count 3.81 10^6/uL (4.70-6.10); Red Cell Dist. Width 15.5 % (11.5-14.5); White Blood Cell Count 6.5 10^3/uL (4.8-10.8)
[2023-09-01 13:54] LABS: Blood Urea Nitrogen 19 mg/dl (9-20); Calcium 8.8 mg/dl (8.4-10.2); Carbon Dioxide 29 mmol/L (22-30); Chloride 105 mmol/L (98-107); Glucose 90 mg/dl (70-99); Potassium 3.7 mmol/L (3.5-5.1); Sodium 137 mmol/L (135-145); eGFR > 60.00
== END ==
LOC: OLABP 12:08
PROVIDERS: ATTENDING PHYSICIAN Family Medicine
DX: A04.72 Enterocolitis due to Clostridium difficile, not specified as recurrent (principal); N17.9 Acute kidney failure, unspecified; E78.6 Lipoprotein deficiency; I25.10 Atherosclerotic heart disease of native coronary artery without angina pectoris; I35.9 Nonrheumatic aortic valve disorder, unspecified; K51.019 Ulcerative (chronic) pancolitis with unspecified complications; I95.9 Hypotension, unspecified; F41.1 Generalized anxiety disorder
CPT/HCPCS: 36415; 80048; 85025

== ENCOUNTER → 2023-09-08 10:20 | Outpatient (REF) | payer OTHER, MEDICARE, BC, SELFPAY ==
[2023-09-08 11:01] LABS: % Eosinophils 9.2 % (0-6); % Immature Granulocytes 0.2 % (0-0.5); % Lymphocytes 27.3 % (20.5-51.1); % Monocytes 10.4 % (1.7-9.3); % Neutrophils 51.9 % (42.2-75.2); Absolute Basophils 0.1 10^3/uL (0-0.2); Absolute Eosinophils 0.5 10^3/uL (0-0.7); Absolute Lymphocytes 1.4 10^3/uL (1.2-3.4); Absolute Monocytes 0.5 10^3/uL (0.1-0.6); Absolute Neutrophils 2.7 10^3/uL (1.4-6.5); Hematocrit 34.6 % (39.0-52.0); Hemoglobin 11.5 g/dL (13.0-18.0); Mean Corp Hgb Conc. 33.2 g/dL (33.0-37.0); Mean Corpuscular Hgb 28.7 pg (27.0-31.0); Mean Corpuscular Volume 86.3 fL (80.0-94.0); Mean Platelet Volume 11.1 fL (7.4-10.4); Nucleated Red Blood Cells % 0 % (-); Platelet Count 203 10^3/uL (130-400); Red Blood Cell Count 4.01 10^6/uL (4.70-6.10); Red Cell Dist. Width 16.1 % (11.5-14.5); White Blood Cell Count 5.2 10^3/uL (4.8-10.8)
[2023-09-08 11:24] LABS: Blood Urea Nitrogen 25 mg/dl (9-20); Calcium 9.4 mg/dl (8.4-10.2); Carbon Dioxide 29 mmol/L (22-30); Chloride 101 mmol/L (98-107); Glucose 83 mg/dl (70-99); Sodium 137 mmol/L (135-145); eGFR > 60.00
== END ==
LOC: OLABP 10:20
PROVIDERS: ATTENDING PHYSICIAN Family Medicine
DX: A04.72 Enterocolitis due to Clostridium difficile, not specified as recurrent (principal); N17.9 Acute kidney failure, unspecified; E78.6 Lipoprotein deficiency; E87.6 Hypokalemia; I25.10 Atherosclerotic heart disease of native coronary artery without angina pectoris; I35.9 Nonrheumatic aortic valve disorder, unspecified; K51.019 Ulcerative (chronic) pancolitis with unspecified complications; I95.9 Hypotension, unspecified; F41.1 Generalized anxiety disorder
CPT/HCPCS: 36415; 80048; 85025

== ENCOUNTER 2023-11-16 01:25 | Emergency (ER) | payer MEDICARE, SELFPAY ==
[2023-11-16] VITALS (12 sets, daily range): BP systolic 100–178; BP diastolic 58–92; PULSE 76; O2SAT 99; BMI 27.2
[2023-11-16 01:44] LABS: % Basophils 0.5 % (0-2); % Eosinophils 3.8 % (0-6); % Immature Granulocytes 0.3 % (0-0.5); % Lymphocytes 14.1 % (20.5-51.1); % Monocytes 9.1 % (1.7-9.3); % Neutrophils 72.2 % (42.2-75.2); Absolute Eosinophils 0.3 10^3/uL (0-0.7); Absolute Lymphocytes 1.1 10^3/uL (1.2-3.4); Absolute Monocytes 0.7 10^3/uL (0.1-0.6); Absolute Neutrophils 5.5 10^3/uL (1.4-6.5); Hematocrit 33.9 % (39.0-52.0); Hemoglobin 11.5 g/dL (13.0-18.0); Mean Corp Hgb Conc. 33.9 g/dL (33.0-37.0); Mean Corpuscular Hgb 29.4 pg (27.0-31.0); Mean Corpuscular Volume 86.7 fL (80.0-94.0); Mean Platelet Volume 10.7 fL (7.4-10.4); Nucleated Red Blood Cells % 0 % (-); Platelet Count 171 10^3/uL (130-400); Red Blood Cell Count 3.91 10^6/uL (4.70-6.10); Red Cell Dist. Width 13.5 % (11.5-14.5); White Blood Cell Count 7.6 10^3/uL (4.8-10.8)
[2023-11-16 01:56] LABS: ALT (SGPT) 25 U/L (0-50); AST (SGOT) 33 U/L (17-59); Albumin 3.7 g/dl (3.5-5.0); Alkaline Phosphatase 84 U/L (38-126); Blood Urea Nitrogen 28 mg/dl (9-20); Carbon Dioxide 24 mmol/L (22-30); Chloride 109 mmol/L (98-107); Creatine Phosphokinase 338 U/L (55-170); Estimated Creatinine Clearance 55 ml/min; Glucose 112 mg/dl (70-99); Potassium 3.9 mmol/L (3.5-5.1); Sodium 139 mmol/L (135-145); Total Bilirubin 0.5 mg/dl (0.2-1.3); Total Protein 5.5 g/dl (6.3-8.2); eGFR > 60.00
--- NOTE | 2023-11-16 02:13 | ED.GENMED ---
History of Present Illness
<LIZ Couch - Last Filed: 11/16/23 17:54>
General
Chief Complaint: Fall
Source: patient
Exam Limitations: none
Time Seen by Provider: 11/16/23 01:58
History of Present Illness
History of Present Illness:
This is a 88 year old male that comes in by ambulance with c/o fall. States that he turned around and he lost his balance. States that he fell up against the wall. States that he hit his head but there was no LOC. States that he has sciatic pain and
some body aches. States that he was unable to get up and friend found him. Denies any fever, chills, chest pain, SOB, abd pain, nausea, vomiting, diarrhea, headache, dizziness, urinary burning
Past History
<LIZ Couch - Last Filed: 11/16/23 17:54>
Past History
ED Past Medical History: Cancer (Prostate CA), HTN, Hypercholesterolemia and Other (sciatica, Difficulty with balance, )
ED Past Surgical History: Cardiac (Aortic valve replaced), Orthopedic (recurrent bursitis left knee) and Other (cataracts)
Social History
Tobacco: Former smoker
Alcohol: Occasional
Personal:
Living: alone
Review of Systems
<LIZ Couch - Last Filed: 11/16/23 17:54>
Review of Systems
All Other Systems: ROS reviewed and negative except as documented in HPI and ROS
Constitutional: Reports no symptoms; Denies fever or chills
EENT: Reports no symptoms
Respiratory: Reports no symptoms; Denies cough or trouble breathing
Cardiac: Reports no symptoms; Denies chest pain
ABD/GI: Reports no symptoms; Denies abdominal pain, nausea, vomiting or diarrhea
: Reports no symptoms; Denies dysuria, frequency or urgency
Musculoskeletal: Reports no symptoms
Neurological: Reports no symptoms; Denies dizzy or headache
Psychiatric: Reports no symptoms
Phy Exam
<LIZ Couch - Last Filed: 11/16/23 17:54>
General Physical Exam
General Presentation: no apparent distress
General age: appears stated age
General Skin: warm and dry
General Habitus: elderly
General Mental: usual mental status
General Hydration: dry mucous membranes
ENT Exam
ENT Exam: TM's normal, pharynx normal and neck supple
Eye Exam
Eye Exam: EOMI
Cardiovascular Exam
Cardiovascular Exam: regular rate/rhythm and normal peripheral pulses
Pulmonary Exam
Pulmonary Exam: lungs clear, no respiratory distress, no rales, chest non tender, no crackles, no rhonchi, no wheezing and no cough
Gastrointestinal Exam
Gastrointestinal Exam: normal bowel sounds, non tender, soft, no organomegaly, no pulsatile mass and non distended
Musculoskeletal Exam
Musculoskeletal Exam: full ROM, edema (Pitting edema +2 in lower legs) and other (Negative for cervical neck tenderness. Patient can cross over, abduct, Flex elbows move fingers and wrist. Negative for discomfort with flexion of the knee's)
Skin Exam
Skin Exam: normal color, warm/dry, no rash and no petechia
Psychiatric Exam
Psychiatric Exam: normal mood/affect
Course
<LIZ Couch - Last Filed: 11/16/23 17:54>
Orders/Labs/Results
Orders:
Orders
11/16/23 01:26
CT Cervical Spine W/o Iv Contr Urgent
Comment:
Reason For Exam: fall,neck pain
CT Head W/o Iv Contrast Urgent
Comment:
Reason For Exam: fall
11/16/23 01:29
CPK [Creatine Phosphokinase] Urgent
Complete Blood Count/With Diff Urgent
Comprehensive Metabolic Panel Urgent
11/16/23 02:12
Add On- LAB Urgent
Tests Added?: Pro-BNP
Electrocardiogram (*1) Urgent
Reason for Study: Other
Other Reason for Exam: fall
EKG- Treatment ONCE
11/16/23 02:14
NT-proBNP Urgent
Comment: ADD ON
Troponin I Urgent
11/16/23 05:14
Troponin I Urgent
11/16/23 05:15
Electrocardiogram (*1) Urgent
Reason for Study: Other
Other Reason for Exam: Repeat with Troponin
EKG- Treatment ONCE
11/16/23 07:22
Case Management Consult ONCE
Case Management Consult: Discharge Planning
Requested By:: NURSING
Comment: PT. seems forgetful, and he lives a lone. Did not know his family's numbers to contact.
Concerned about patient's safety, meals, and his medictions.
11/16/23 07:38
Case Management Consult ONCE
Case Management Consult: Discharge Planning
Requested By:: PHYSICIAN
Comment: slip and fall at home, lying of floor extended time until friend found him. Recent d/c from
SNF to home. Uses walker. PT consult this am for ambulation eval prior to d/c home. vs needs
SNF for ambulation dysfunction
Physical Therapy Consult [Pt Eval And Treat] Urgent
Activity Level: Ambulate
11/16/23 10:06
Case Management Consult ONCE
Case Management Consult: VN/Home Care
Abnormal Lab Results
11/16/23 11/16/23 11/16/23
01:29 02:14 05:14
RBC 3.91 L 10^6/uL
(4.70-6.10)
Hgb 11.5 L g/dL
(13.0-18.0)
Hct 33.9 L %
(39.0-52.0)
MPV 10.7 H fL
(7.4-10.4)
Absolute Lymphs (auto) 1.1 L 10^3/uL
(1.2-3.4)
Absolute Monos (auto) 0.7 H 10^3/uL
(0.1-0.6)
Lymphocytes % 14.1 L %
(20.5-51.1)
Chloride 109 H mmol/L
(98-107)
BUN 28 H mg/dl
(9-20)
Glucose 112 H mg/dl
(70-99)
Creatine Kinase 338 H U/L
(55-170)
Troponin I 0.043 H* ng/ml 0.046 H* ng/ml
Total Protein 5.5 L g/dl
(6.3-8.2)
11/16/23 01:29
11/16/23 01:29
H/H slightly low. chloride slightly elevated. Dehydration. Glucose nonfasting. CPK slightly elevated. total protein slightly low. Troponin 0.043, Pro-BNP 222
Vital Signs
Initial and Last Documented VS:
Initial Vital Signs
Temp Pulse Resp BP Pulse Ox
98.6 F 82 19 156/66 98
11/16/23 01:30 11/16/23 01:30 11/16/23 01:30 11/16/23 01:30 11/16/23 01:30
Last Documented Vital Signs
Temp Pulse Resp BP Pulse Ox
98.6 F 57 17 153/75 98
11/16/23 01:30 11/16/23 10:00 11/16/23 10:00 11/16/23 10:00 11/16/23 02:02
Satnamlt;Esperanza Marin, - Last Filed: 11/16/23 07:46>
Orders/Labs/Results
Orders:
Orders
11/16/23 01:26
CT Cervical Spine W/o Iv Contr Urgent
Comment:
Reason For Exam: fall,neck pain
CT Head W/o Iv Contrast Urgent
Comment:
Reason For Exam: fall
11/16/23 01:29
CPK [Creatine Phosphokinase] Urgent
Complete Blood Count/With Diff Urgent
Comprehensive Metabolic Panel Urgent
11/16/23 02:12
Add On- LAB Urgent
Tests Added?: Pro-BNP
Electrocardiogram (*1) Urgent
Reason for Study: Other
Other Reason for Exam: fall
EKG- Treatment ONCE
11/16/23 02:14
NT-proBNP Urgent
Comment: ADD ON
Troponin I Urgent
11/16/23 05:14
Troponin I Urgent
11/16/23 05:15
Electrocardiogram (*1) Urgent
Reason for Study: Other
Other Reason for Exam: Repeat with Troponin
EKG- Treatment ONCE
11/16/23 07:22
Case Management Consult ONCE
Case Management Consult: Discharge Planning
Requested By:: NURSING
Comment: PT. seems forgetful, and he lives a lone. Did not know his family's numbers to contact.
Concerned about patient's safety, meals, and his medictions.
11/16/23 07:38
Case Management Consult ONCE
Case Management Consult: Discharge Planning
Requested By:: PHYSICIAN
Comment: slip and fall at home, lying of floor extended time until friend found him. Recent d/c from
SNF to home. Uses walker. PT consult this am for ambulation eval prior to d/c home. vs needs
SNF for ambulation dysfunction
Physical Therapy Consult [Pt Eval And Treat] Urgent
Activity Level: Ambulate
11/16/23 10:06
Case Management Consult ONCE
Case Management Consult: VN/Home Care
Abnormal Lab Results
11/16/23 11/16/23 11/16/23
01:29 02:14 05:14
RBC 3.91 L 10^6/uL
(4.70-6.10)
Hgb 11.5 L g/dL
(13.0-18.0)
Hct 33.9 L %
(39.0-52.0)
MPV 10.7 H fL
(7.4-10.4)
Absolute Lymphs (auto) 1.1 L 10^3/uL
(1.2-3.4)
Absolute Monos (auto) 0.7 H 10^3/uL
(0.1-0.6)
Lymphocytes % 14.1 L %
(20.5-51.1)
Chloride 109 H mmol/L
(98-107)
BUN 28 H mg/dl
(9-20)
Glucose 112 H mg/dl
(70-99)
Creatine Kinase 338 H U/L
(55-170)
Troponin I 0.043 H* ng/ml 0.046 H* ng/ml
Total Protein 5.5 L g/dl
(6.3-8.2)
11/16/23 01:29
11/16/23 01:29
Vital Signs
Initial and Last Documented VS:
Initial Vital Signs
Temp Pulse Resp BP Pulse Ox
98.6 F 82 19 156/66 98
11/16/23 01:30 11/16/23 01:30 11/16/23 01:30 11/16/23 01:30 11/16/23 01:30
Last Documented Vital Signs
Temp Pulse Resp BP Pulse Ox
98.6 F 57 17 153/75 98
11/16/23 01:30 11/16/23 10:00 11/16/23 10:00 11/16/23 10:00 11/16/23 02:02
<Yannick Bowling MD - Last Filed: 11/16/23 10:11>
Orders/Labs/Results
Orders:
Orders
11/16/23 01:26
CT Cervical Spine W/o Iv Contr Urgent
Comment:
Reason For Exam: fall,neck pain
CT Head W/o Iv Contrast Urgent
Comment:
Reason For Exam: fall
11/16/23 01:29
CPK [Creatine Phosphokinase] Urgent
Complete Blood Count/With Diff Urgent
Comprehensive Metabolic Panel Urgent
11/16/23 02:12
Add On- LAB Urgent
Tests Added?: Pro-BNP
Electrocardiogram (*1) Urgent
Reason for Study: Other
Other Reason for Exam: fall
EKG- Treatment ONCE
11/16/23 02:14
NT-proBNP Urgent
Comment: ADD ON
Troponin I Urgent
11/16/23 05:14
Troponin I Urgent
11/16/23 05:15
Electrocardiogram (*1) Urgent
Reason for Study: Other
Other Reason for Exam: Repeat with Troponin
EKG- Treatment ONCE
11/16/23 07:22
Case Management Consult ONCE
Case Management Consult: Discharge Planning
Requested By:: NURSING
Comment: PT. seems forgetful, and he lives a lone. Did not know his family's numbers to contact.
Concerned about patient's safety, meals, and his medictions.
11/16/23 07:38
Case Management Consult ONCE
Case Management Consult: Discharge Planning
Requested By:: PHYSICIAN
Comment: slip and fall at home, lying of floor extended time until friend found him. Recent d/c from
SNF to home. Uses walker. PT consult this am for ambulation eval prior to d/c home. vs needs
SNF for ambulation dysfunction
Physical Therapy Consult [Pt Eval And Treat] Urgent
Activity Level: Ambulate
11/16/23 10:06
Case Management Consult ONCE
Case Management Consult: VN/Home Care
Abnormal Lab Results
11/16/23 11/16/23 11/16/23
01:29 02:14 05:14
RBC 3.91 L 10^6/uL
(4.70-6.10)
Hgb 11.5 L g/dL
(13.0-18.0)
Hct 33.9 L %
(39.0-52.0)
MPV 10.7 H fL
(7.4-10.4)
Absolute Lymphs (auto) 1.1 L 10^3/uL
(1.2-3.4)
Absolute Monos (auto) 0.7 H 10^3/uL
(0.1-0.6)
Lymphocytes % 14.1 L %
(20.5-51.1)
Chloride 109 H mmol/L
(98-107)
BUN 28 H mg/dl
(9-20)
Glucose 112 H mg/dl
(70-99)
Creatine Kinase 338 H U/L
(55-170)
Troponin I 0.043 H* ng/ml 0.046 H* ng/ml
Total Protein 5.5 L g/dl
(6.3-8.2)
11/16/23 01:29
11/16/23 01:29
Vital Signs
Initial and Last Documented VS:
Initial Vital Signs
Temp Pulse Resp BP Pulse Ox
98.6 F 82 19 156/66 98
11/16/23 01:30 11/16/23 01:30 11/16/23 01:30 11/16/23 01:30 11/16/23 01:30
Last Documented Vital Signs
Temp Pulse Resp BP Pulse Ox
98.6 F 57 17 153/75 98
11/16/23 01:30 11/16/23 10:00 11/16/23 10:00 11/16/23 10:00 11/16/23 02:02
<LIZ Couch - Last Filed: 11/16/23 17:54>
MDM/Problems Addressed
Differential Diagnosis Includes:
Accidental fall. Subdural hematoma,
MDM/Problems Addressed:
This is a 88 year old male that comes in with co fall. States that he turned and lost his balance. States that he fell into the wall and hit his head. Denies any LOC.
Will get CT of head and neck. Blood work.
Chronic conditions affecting care:
Difficulty with balance
Acute Exacerbation and/or Progression of Chronic Illness:
Difficulty with balance
<LIZ Couch - Last Filed: 11/16/23 17:54>
*Pulse Oximetry
Patient hypoxic: no
*EKG
Interpreted by ED Provider?: Yes
Heart Rate: 72
Rate: normal
Rhythm: sinus
Hobbs: normal axis
Interval: first degree heart block
QRS Pattern: normal QRS
Ischemia: no ischemia
*Power Machine Operator Interpretation
Rate: normal
Heart Rate: 78
Rhythm: sinus
*Critical Care Note
Total Time (30-74mins, 75-104mins- exclusive of procedures): Not Applicable
ED Attending Note
<LIZ Couch - Last Filed: 11/16/23 17:54>
-
Portions of this chart may have been created with voice recognition software.� Occasional wrong word or��sound alike� substitutions may have occurred due to the inherent limitations of voice recognition software.
<Esperanza Marin DO - Last Filed: 11/16/23 07:46>
ED Attending Note
Patient seen and examined by attending physician: Yes
ED Attending Note:
88-year-old gentleman who resides at home suffered a slip in the bathroom while turning, falling to the floor. No loss of consciousness but was unable to get up off of the floor and subsequently was lying on the bathroom floor for several hours
until help arrived.
He remains awake and alert, pleasant, in no distress. Continues to deny chest pain nor shortness of breath.
Had been feeling well prior to slip and fall and recently discharged from longterm facility after hospital stay here
Uses a walker to ambulate.
CT of the head and cervical spine are negative.
No palpable bony tenderness.
Labs remarkable for borderline elevated troponin, repeat is stable. EKG is similar and unchanged from previous. He continues to deny chest pain and has had no dizziness nor shortness of breath.
Will plan for PT evaluation at bedside to assess ambulation ability prior to discharge to home.
If gait is unsteady and patient deemed unsafe to return home, I have consulted case management for assistance with longterm facility transfer versus acute hospitalization for acute ambulation dysfunction.
<Yannick Bowling MD - Last Filed: 11/16/23 10:11>
ED Attending Note
ED Attending Note:
88-year-old gentleman who resides at home suffered a slip in the bathroom while turning, falling to the floor. No loss of consciousness but was unable to get up off of the floor and subsequently was lying on the bathroom floor for several hours
until help arrived.
He remains awake and alert, pleasant, in no distress. Continues to deny chest pain nor shortness of breath.
Had been feeling well prior to slip and fall and recently discharged from longterm facility after hospital stay here
Uses a walker to ambulate.
CT of the head and cervical spine are negative.
No palpable bony tenderness.
Labs remarkable for borderline elevated troponin, repeat is stable. EKG is similar and unchanged from previous. He continues to deny chest pain and has had no dizziness nor shortness of breath.
Will plan for PT evaluation at bedside to assess ambulation ability prior to discharge to home.
If gait is unsteady and patient deemed unsafe to return home, I have consulted case management for assistance with longterm facility transfer versus acute hospitalization for acute ambulation dysfunction.
Patient is remained stable throughout the night. Feels well and would like to go home. Daughter would like him to go home. Case management discussed with me explaining this.1000... Patient had a minimal troponin elevation but this is stable and
he has no acute cardiac symptoms. We will arrange for home health care.
Discharge Plan
Departure
Patient Disposition: Home (Routine Discharge)
Date of Disposition: 11/16/23
Time of Disposition: 10:10
Patient with high blood pressure during this ER visit?: No
Condition: Good
Covid-19: Not Applicable
Discharge Problem:
slip and fall at home
Instructions: Contusion (DC), Preventing falls in adults, BLOOD PRESSURE
Prescriptions:
No Action
atorvastatin [Lipitor] 80 mg Tablet
80 mg PO QPM
cyanocobalamin (vitamin B-12) 1,000 mcg Tablet
1,000 mcg PO DAILY
aspirin 81 mg Tablet,Delayed Release (Dr/Ec)
81 mg PO DAILY
duloxetine [Cymbalta] 20 mg Capsule,Delayed Release(Dr/Ec)
20 mg PO DAILY
cholecalciferol (vitamin D3) [Vitamin D3] 25 mcg (1,000 unit) Tablet
25 mcg PO DAILY
PreserVision AREDS 2,148 mcg-113 mg-45 mg-17.4mg Tablet
1 tab PO DAILY
famotidine 20 mg Tablet
20 mg PO DAILY Qty: 30 0RF
Referrals:
Pat De La O MD [Family Provider] - Follow up in 2-3 days
Interventions
Interventions:
*Risk Screen - Suicide Last Done: 11/16/23 01:30
*General Assessment Last Done: 11/16/23 01:30
*Neglect/Abuse Screening Last Done: 11/16/23 01:30
ED- Fall Risk Assessment Last Done: 11/16/23 02:21
*ED COVID-19 Vaccine History Last Done: 11/16/23 01:30
*Nursing Disposition Last Done: 11/16/23 10:21
ED-Musculoskeletal Assessment Last Done: 11/16/23 03:20
ED- Neurological Assessment Last Done: 11/16/23 03:20
ED-Skin Assessment Last Done: 11/16/23 03:20
Discharge Date and Time
Discharge Date/Time: 11/16/23 10:22
Print Language: ARMENIAN
[2023-11-16 02:47] LABS: NT-proBNP 222 pg/ml; Troponin I 0.043 ng/ml
[2023-11-16 05:59] LABS: Troponin I 0.046 ng/ml
--- NOTE | 2023-11-16 09:54 | CM ---
Addendum entered by Valdemar Pappas 11/16/23 10:23:
Please fax discharge instructions to [facility] at [phone].
Original Note:
CM following re: discharge planning.
CM consulted regarding concerns pt living at home alone and pt needs support at home.
Reviewed pt's chart, met with pt and pt's daughter Regla at bedside. CM spoke to pt's son Stoney over the phone [phone]. Per chart review, pt fell at home, was lying on the floor for some time, lady friend Nely found him on the floor,
called 911 and pt is at for evaluation.
Pt presents with decreased judgement, decreased insights. Pt reports he lives alone in a [address] community condo, 2n floor with elevator. Pt reports he has 3 supportive children, has a walker and a cane at home and does not use them. pt stated he fell
at home because of a tile floor. pt blames tile floor asa reason of his fall. pt stated he had before carpet floor and he did not have any problems. Pt reports he still drives and per pt he drives better than walks. Pt reports he was here at in
August of this year, went to [facility] where he was just 10 days, was discharged home with [facility]. Pt reports he has supportive lady friend Nely [phone]. Pt expressed his desire to return back home and he is requested [facility].
CM discussed pt's discharge plan in details with pt's daughter Regla and son Stoney and they both agree that pt needs support at home and it seems lady friend Nely who comes to visit the pt daily is not enough. Pt's daughter Regla stated she
lives alone and she will discuss with the pt a possibility to move to her house. Per daughter Regla, her father does not need a lot of care and he just needs a revenue settlements administrator and supervision. Pt's son Stoney agrees with increasing support to his
father at home in order to keep him safe and he stated that he and his sisters will work on it.
PT evaluation noted - SNF level of care recommended.
CM discussed it with the pt and his daughter. Medicare rules for SNF criteria explained to the pt and his daughter. Pt expressed his strong desire to return back home with [facility]. Daughter supports pt's plan and stated she will work with her sister
and brother Stoney on increasing support to their father at home. Per daughter, in the beginning, lady friend Nely might stay with the pt longer hours daily till additional support will be in place.
A referral to [facility] made.
D/C plan: home with [facility], lady friend Nely and family support and family developing a strong support system to keep the pt safe at home. Pt's family is on board.
CM will follow with discharge plan if pt will be admitted to the hospital.
== END 2023-11-16 10:22 | disposition home or self-care (01) ==
LOC: EMR 01:25
PROVIDERS: Clinical Nurse Specialist Family Health; Emergency Medicine; EMERGENCY PHYSICIAN Emergency Medicine; FAMILY PHYSICIAN Internal Medicine
DX: S09.90XA Unspecified injury of head, initial encounter (principal); W01.0XXA Fall on same level from slipping, tripping and stumbling without subsequent striking against object, initial encounter; Z87.891 Personal history of nicotine dependence
CPT/HCPCS: 99285; 70450; 72125; 80053; 82550; 83880; 84484; 85025; 93005

== ENCOUNTER → 2024-01-22 11:17 | Outpatient (REF) | payer MEDICARE, BC, SELFPAY | LOC: HWRCS 11:17 | PROVIDERS: ATTENDING PHYSICIAN Internal Medicine Cardiovascular Disease; FAMILY PHYSICIAN Internal Medicine | DX: I50.32 Chronic diastolic (congestive) heart failure (principal); Z95.2 Presence of prosthetic heart valve; R42 Dizziness and giddiness | CPT/HCPCS: 93306 ==

== ENCOUNTER 2024-01-25 15:24 | Inpatient (IN) | payer MEDICARE, BC, SELFPAY ==
[2024-01-25] VITALS (10 sets, daily range): BP systolic 119–214; BP diastolic 64–91; BMI 28.0
[2024-01-25 11:40] LABS: % Basophils 0.7 % (0-2); % Eosinophils 4.9 % (0-6); % Immature Granulocytes 0.2 % (0-0.5); % Lymphocytes 19.9 % (20.5-51.1); % Neutrophils 62.3 % (42.2-75.2); Absolute Eosinophils 0.2 10^3/uL (0-0.7); Absolute Lymphocytes 0.9 10^3/uL (1.2-3.4); Absolute Monocytes 0.5 10^3/uL (0.1-0.6); Absolute Neutrophils 2.7 10^3/uL (1.4-6.5); Hematocrit 34.7 % (39.0-52.0); Hemoglobin 11.5 g/dL (13.0-18.0); Mean Corp Hgb Conc. 33.1 g/dL (33.0-37.0); Mean Corpuscular Hgb 27.4 pg (27.0-31.0); Mean Corpuscular Volume 82.6 fL (80.0-94.0); Nucleated Red Blood Cells % 0 % (-); Platelet Count 175 10^3/uL (130-400); Red Cell Dist. Width 13.5 % (11.5-14.5); White Blood Cell Count 4.3 10^3/uL (4.8-10.8)
[2024-01-25 11:51] LABS: ALT (SGPT) 21 U/L (0-50); AST (SGOT) 27 U/L (17-59); Albumin 3.7 g/dl (3.5-5.0); Alkaline Phosphatase 75 U/L (38-126); Blood Urea Nitrogen 25 mg/dl (9-20); Carbon Dioxide 31 mmol/L (22-30); Chloride 102 mmol/L (98-107); Estimated Creatinine Clearance 52 ml/min; Glucose 115 mg/dl (70-99); Potassium 3.8 mmol/L (3.5-5.1); Sodium 142 mmol/L (135-145); Total Bilirubin 0.5 mg/dl (0.2-1.3); Total Protein 5.8 g/dl (6.3-8.2); eGFR > 60.00
[2024-01-25 12:03] LABS: NT-proBNP 197 pg/ml; Troponin I < 0.012 ng/ml
--- NOTE | 2024-01-25 12:30 | ED.GENMED ---
Addendum entered and electronically signed by Yannick Bowling MD 01/25/24 13:47:
EKG normal sinus rhythm at 62. First-degree block. No acute changes.
Original Note:
History of Present Illness
General
Chief Complaint: Swelling
Source: patient
Exam Limitations: none
Time Seen by Provider: 01/25/24 11:38
History of Present Illness
History of Present Illness:
Swelling drainage right leg. Progressive over 2 to 4 weeks. Sent from urgent care. Some pain. No chest pain shortness of breath fever chills or other complaints.
Past History
Past History
ED Past Medical History: Cancer (Prostate CA), HTN, Hypercholesterolemia and Other (sciatica, Difficulty with balance, )
ED Past Surgical History: Cardiac (Aortic valve replaced), Orthopedic (recurrent bursitis left knee) and Other (cataracts)
Social History
Tobacco: Former smoker
Alcohol: Occasional
Personal:
Living: alone
Employment: Employed
Review of Systems
Review of Systems
All Other Systems: Not applicable
Respiratory: Reports no symptoms
Cardiac: Reports no symptoms
ABD/GI: Reports no symptoms
Phy Exam
Physical Exam
Physical Exam:
GENERAL: Alert and oriented in no apparent distress
EYE: Orbits normal.
NECK: Supple
CARDIAC: Regular rate and rhythm without any obvious murmurs.
LUNGS: Clear breath sounds,normal
ABDOMEN: Soft, without focal tenderness or distention
NEUROLOGICAL: Alert and oriented , grossly non-focal
SKIN: Warm and dry, wound posterior right leg fairly scabbed but with some mildly purulent drainage
MUSCULOSKELETAL: Edema right greater than left leg. Chronic pitting to both however. Hyperpigmentation changes. Some erythema surrounding a posterior wound with some erythema extending to the dorsal foot. Good color. Warm. Perfusing.
PSYCH: Normal and appropriate interaction.
Scores
Heart Failure Risk
Heart Failure Risk Score: Not Applicable
Course
Orders/Labs/Results
Orders:
Orders
01/25/24 11:22
Electrocardiogram (*1) Urgent
Reason for Study: Shortness of Breath
01/25/24 11:23
EKG- Treatment ONCE
01/25/24 11:24
BNP [NT-proBNP] Urgent
Complete Blood Count/With Diff Urgent
Comprehensive Metabolic Panel Urgent
Troponin I Urgent
01/25/24 12:09
US Periph Venous LOWER Ext Lion Urgent
Comment:
Reason For Exam: Swelling swelling right greater than left
Abnormal Lab Results
01/25/24
11:24
WBC 4.3 L 10^3/uL
(4.8-10.8)
RBC 4.20 L 10^6/uL
(4.70-6.10)
Hgb 11.5 L g/dL
(13.0-18.0)
Hct 34.7 L %
(39.0-52.0)
MPV 11.0 H fL
(7.4-10.4)
Absolute Lymphs (auto) 0.9 L 10^3/uL
(1.2-3.4)
Lymphocytes % 19.9 L %
(20.5-51.1)
Monocytes % 12.0 H %
(1.7-9.3)
Carbon Dioxide 31 H mmol/L
(22-30)
BUN 25 H mg/dl
(9-20)
Glucose 115 H mg/dl
(70-99)
Total Protein 5.8 L g/dl
(6.3-8.2)
01/25/24 11:24
01/25/24 11:24
Vital Signs
Initial and Last Documented VS:
Initial Vital Signs
Temp Pulse Resp BP Pulse Ox
97.9 F 76 16 119/64 98
01/25/24 10:52 01/25/24 10:52 01/25/24 10:52 01/25/24 10:52 01/25/24 10:52
Last Documented Vital Signs
Temp Pulse Resp BP Pulse Ox
97.9 F 62 17 180/75 99
01/25/24 10:52 01/25/24 13:00 01/25/24 13:00 01/25/24 13:00 01/25/24 11:17
MDM/Problems Addressed
Differential Diagnosis Includes:
Significant asymmetry and swelling to the right leg with some mild erythema and a posterior wound and drainage. Possibly all cellulitis. To consider DVT. Workup in progress
*Radiology
Radiology exam reviewed: radiology read reviewed (Negative ultrasound)
*Pulse Oximetry
Patient hypoxic: no
*Critical Care Note
Total Time (30-74mins, 75-104mins- exclusive of procedures): Not Applicable
Data Reviewed
Review of Other/Old Records Reveals: Labs and Testing
Update Note
Update Note:
No DVT. Significant swelling erythema drainage. Cellulitis. Admitted for further care
ED Attending Note
-
Portions of this chart may have been created with voice recognition software.� Occasional wrong word or��sound alike� substitutions may have occurred due to the inherent limitations of voice recognition software.
Discharge Plan
Departure
Patient Disposition: Admit
Date of Disposition: 01/25/24
Time of Disposition: 13:42
Presentation/result/management discussed w/ accepting MD/DO: Hospitalist
Discharge Problem:
Cellulitis swelling right lower extremit
Prescriptions:
No Action
atorvastatin [Lipitor] 80 mg Tablet
80 mg PO QPM
cyanocobalamin (vitamin B-12) 1,000 mcg Tablet
1,000 mcg PO DAILY
aspirin 81 mg Tablet,Delayed Release (Dr/Ec)
81 mg PO DAILY
duloxetine [Cymbalta] 20 mg Capsule,Delayed Release(Dr/Ec)
20 mg PO DAILY
cholecalciferol (vitamin D3) [Vitamin D3] 25 mcg (1,000 unit) Tablet
25 mcg PO DAILY
PreserVision AREDS 2,148 mcg-113 mg-45 mg-17.4mg Tablet
1 tab PO DAILY
famotidine 20 mg Tablet
20 mg PO DAILY Qty: 30 0RF
Referrals:
Pat De La O MD [Family Provider] -
Interventions
Interventions:
*Risk Screen - Suicide Last Done: 01/25/24 10:52
*General Assessment Last Done: 01/25/24 10:52
*Neglect/Abuse Screening Last Done: 01/25/24 10:52
ED- Fall Risk Assessment Last Done: 01/25/24 11:16
*ED COVID-19 Vaccine History Last Done: 01/25/24 11:17
ED- Cardiac Assessment Last Done: 01/25/24 11:17
ED- Pulmonary Assessment Last Done: 01/25/24 11:17
ED-Skin Assessment Last Done: 01/25/24 11:17
Discharge Date and Time
Print Language: NEPALI
[2024-01-25] MEDS: ZOSYN 100 IV (14:06)
--- NOTE | 2024-01-25 14:17 | W.PN.UPDATE ---
Update Note
Progress Note Update
I personally performed a history and physical exam of the patient and discussed management with the resident. I reviewed the resident's note and agree with the documented findings and plan of care HPI/CC.
Patient is a 89M with PMH of s/p TAVR, Prostate cancer, HLD, Essential HTN, OA, chronic leg swelling, chronic diastolic HF, Pre-diabetes , Obesity, carotid stenosis came with ER with new onset of right leg swelling. Patient have history of
chronic leg swelling/lymphedema and noticed to having new superficial wound on posterior side of right lower leg/calf area. Unclear how wound started. Patient is afebrile. Noted some lower extremity erythema and came to ER for further evaluation.
HEENT: No pallor, cyanosis, or jaundice. Throat clear.
NECK: Supple. No JVD.
RESPIRATORY: Lungs clear to auscultation.
CVS: S1, S2 normal. RRR. No murmur, rub or gallop.
ABDOMEN: Soft, non-tender. No distension. BS+/normal.
EXTREMITIES: B/l edema upto knee level. Right lower leg superficial skin ulcer
STENCILER: AOx3. No focal deficits.
1. Right leg superficial wound
Chronic LE edema
Cellulitis around the wound
-superficial skin wound for last 1 week or so, no purulent drainage on exam
-denies previous history of skin wounds
-LE venous Doppler negative for clot.
-Screen for MRSA and diabetes
-Wound care consult and patient will need f/u with outpatient wound care.
-Got vanc/zosyn in ER, continue vanc for now
2. HTN urgency
-Patient systolic blood pressure ~ 200 in ER during eval
-Provided IV hydralazine 10mg in ER, continue Q4H for SBP > 160
-Will need to be started on oral medication if BP not improved
3. H/o Cdiff colitis
-was positive in september 02
-Provide oral vancomycin 125mg BID for PPX, f/ued by 7 more days post completion of abx
DVT PPX- lovenox
[2024-01-25] MEDS: APRESOLINE 10 MG IV (14:21)
--- NOTE | 2024-01-25 14:59 | HPS.HSE ---
Family Physician
-
Family Physician: Pat De La O
Chief Complaint
-
right lower leg swelling, wound
History of Present Illness
89yo M with PMH HTN, CHpEF, chronic venous insufficiency, history of cdiff s/p treatment, who presented from home to urgent care, and was sent to ED 01/24 for swelling of right lower extremity and wound. He is a poor historian and reports recent
events inconsistently. He says that he first noticed an issue 3-4 days ago when he awoke with pain in the back of his right calf. He also says that the redness of his right lower leg started about 2 weeks ago and estimates that the wound started
around that same time, though he did not notice the wound. His daughter present at bedside reports that it was getting more painful over the past 5-10 days, which patient initially endorsed though later said he has no pain at rest or with walking.
He denies pain except when 'doctors poke it,' and denies inciting injury. Denies fevers, chills, lightheadedness, dizziness, headache, chest pain, palpitations, shortness of breath, nausea, vomiting, diarrhea, constipation. Regular daily bowel
movements that are solid and brown, most recently this AM; denies black or bloody stools. Denies pain/difficulty/choking when eating/drinking. He lives alone in a condo and uses a walker when ambulating.
Medical History
Past Medical History
Past Medical History: Reports Arrhythmia, CAD, Cancer, CHF, HTN, Hypercholesterolemia and Valvular Disease
Additional Past Medical History:
CHpEF
HTN
HLD
CAD
aortic stenosis s/p AVR (bovine valve)
venous insufficiency
atherosclerosis of both carotid arteries
prediabetes
first degree AV block
Memory changes
Macular degeneration
H/o prostate cancer s/p radiation (~30y ago)
H/o basal cell carcinoma
Degenerative disc disease
Past Surgical History: Reports Cardiac, Orthopedic and Other
Additional Past Surgical History:
aortic valve replacement (25mm bovine pericardial valve) 06/2017
spinal steroid injections
?excision of basal cell carcinoma
Social History
Tobacco: Former Smoker
Alcohol: Occasional
Drug: None
Living: Alone (condo)
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
Family History
Family History: Not pertinent
Allergies / Home Medications
Allergies reflects when Allergies were last updated in [facility].
Home Medications with original date entered in [facility]
Allergy/Medication List:
Allergies
Allergy/AdvReac Type Severity Reaction Status Date / Time
oxycodone [From Roxicodone] Allergy Confusion Verified 01/25/24 10:51
tramadol Allergy Rash, Verified 01/25/24 10:51
Restlessness,
'I thought
I was
going to
'.
Home Medications
aspirin 81 mg tablet,delayed release 81 mg PO DAILY Blood Clot Prevention/Tx 08/18/23
atorvastatin 80 mg tablet (Lipitor) 80 mg PO QPM High Cholesterol 08/18/23
cholecalciferol (vitamin D3) 25 mcg (1,000 unit) tablet (Vitamin D3) 25 mcg PO DAILY Supplement 08/18/23
cyanocobalamin (vitamin B-12) 1,000 mcg tablet 1,000 mcg PO DAILY Supplement 08/18/23
duloxetine 20 mg capsule,delayed release (Cymbalta) 20 mg PO DAILY Mental Health/Anxiety 08/18/23
vitamins A,C,L-krfo-okjblu 2,148 mcg-113 mg-45 mg-17.4 mg tablet (PreserVision AREDS) 1 tab PO DAILY Supplement 08/18/23
omeprazole 40 mg capsule,delayed release 40 mg PO DAILY 01/25/24
Review of Systems
-
History Source: Patient
A 12 point ROS was completed and negative except as noted: Yes
Constitutional: Denies Fever or Chills
EENT: Reports Other (right eye redness from injections for macular degeneration)
Respiratory: Denies Cough or Trouble Breathing
Cardiac: Denies Chest Pain, Palpitations or Syncope
Abdomen/GI: Denies Abdominal Pain, Nausea, Vomiting, Diarrhea, Constipated, Bloody Stools or Black Stools
: Denies Dysuria, Difficulty Voiding or Bleeding
Musculoskeletal: Reports Muscle Pain (right calf) and Edema (bilateral lower extremities R > L)
Skin: Reports See HPI
Neurological: Denies Dizzy, Headache or Weakness
Hematologic/Lymphatic: Denies Bleeding or Bruising
Psych: Reports No Symptoms
Physical Exam
Vital Signs
Vital Signs
Temp Pulse Resp BP Pulse Ox
97.6 F 64 19 199/85 99
01/25/24 14:00 01/25/24 14:21 01/25/24 14:00 01/25/24 14:21 01/25/24 11:17
Physical Exam
General: Well Developed, Well Nourished, No Apparent Distress, Comfortable, Conversant and Other (appears stated age); No Pain, Fever, Chills or Sweats
HEENT: NormoCephalic, Atraumatic, [place] Conjunctivae, Hearing Impaired and Other (lateral right eye subconjunctival hemorrhage)
Respiratory: Clear and Non Labored Respirations; No Wheezes
Cardiac: S1/S2, Regular Rhythm, Peripheral Edema (bilateral lower extremities R > L) and Calf Tenderness (R calf tenderness, no TTP left side); No Nyasia's Sign
GI: Soft, Non Tender, Non Distended and Normal Bowel Sounds
Musculoskeletal: No Cyanosis and Other (edema bilateral lower extremities R > L; dorsalis pedal pulses weak bilaterally)
Skin: Ulcers (superficial venous ulcer right calf)
Neuro: Awake, Alert, Oriented and Nonfocal/grossly intact
Psych: Calm, Intact Judgment/Insight and Apparent Dementia
Laboratory Results
-
01/25/24 11:24
01/25/24 11:24
Laboratory Results
Total Bilirubin 0.5 mg/dl (0.2-1.3) 01/25/24 11:24
AST 27 U/L (17-59) 01/25/24 11:24
ALT 21 U/L (0-50) 01/25/24 11:24
Alkaline Phosphatase 75 U/L (38-126) 01/25/24 11:24
Troponin I < 0.012 ng/ml 01/25/24 11:24
Data Reviewed
-
Ultrasound: Report Reviewed by me and Discussed with Physician
Lab Data: Labs Reviewed by me and Discussed with Physician
Impression/Plan
-
89yo M with PMH HTN, CHpEF, chronic venous insufficiency, history of cdiff s/p treatment, who presented from home to urgent care, and was sent to ED 01/24 for swelling of right lower extremity and wound.
asymmetric bilateral lower extremity edema
venous insufficiency
superficial ulcer
nonsuppurative cellulitis
- DVT ruled out with peripheral vascular ultrasound
- suspect asymmetry secondary to cellulitis
- continue vancomycin IV
- will check MRSA screening
- wound care consult
- PT/OT eval
- continue elevation of legs while in bed, compression wrap
History of cdiff
- monitor stool consistency- consider cdiff stool testing if patient develops diarrhea
- can give prophylactic oral vanc after finishing course of antibiotics
HTN
- asymptomatic severe hypertension on admission, BP 199/85 in ER
- not on antihypertensive medications at home
- s/p 10mg hydralazine in ED
- initiate losartan 50mg qd
- monitor BP and will reassess antihypertensives as needed
CHFpEF
- not in excacerbation
- most recent echo 01/22/24: LV EF 65-70%, mild concentric LV hypertrophy, no regional wall motion abnormalities; bioprosthetic aortic valve replacement, trace mitral/tricuspid regurg
- 2g Na diet
- daily weights
?diabetes
- A1C 6.5 outpatient, not on any diabetic medications
- recheck A1C here, POC BG AC/HS
- low insulin sliding scale
- diabetic diet
HLD- continue home atorvastatin
CAD- continue home aspirin and atorvastatin
aortic stenosis s/p AVR (bovine valve)
atherosclerosis of both carotid arteries
first degree AV block
code status: DNR
patient has advanced directive, instructed to bring it in
POA: daughter Regla
VTE ppx: lovenox 40 sc qpm
diet: 2g Na, diabetic
dispo planning: pending PT/OT eval
[2024-01-25] MEDS: VANCOCIN 300 MG IV (15:14)
[2024-01-25] MEDS: VANCOCIN 300 ML IV (15:14)
--- NOTE | 2024-01-25 15:31 | CM ---
CM attempted 2x bedside visit- pt receiving care
Call with dtr/Regla
Pt resides in the [facility] [address] condo
He resides alone in a 2nd floor condo with 1 MY to enter building and elevator access
Pt is independent with his ADLs with use of a WW, SPC and furniture surfing
Pt has hx at [facility]
Denies financial insecurities
PCP- Pat De La O
Rx- Tiago Silveira
Discharge Disposition- anticipate home. watch for VN or higher needs
[2024-01-25] MEDS: COZAAR 50 MG PO (16:25)
[2024-01-25 16:47] LABS: Glucose - Point of Care 96 mg/dl (70-99)
[2024-01-25] MEDS: LIPITOR 80 MG PO (17:21)
[2024-01-25] MEDS: LOVENOX 40 MG SC (17:21)
[2024-01-25 21:33] LABS: Glucose - Point of Care 112 mg/dl (70-99)
[2024-01-26 06:54] LABS: Blood Urea Nitrogen 24 mg/dl (9-20); Calcium 10.4 mg/dl (8.4-10.2); Carbon Dioxide 29 mmol/L (22-30); Chloride 101 mmol/L (98-107); Estimated Creatinine Clearance 59 ml/min; Glucose 107 mg/dl (70-99); Potassium 3.9 mmol/L (3.5-5.1); Sodium 143 mmol/L (135-145); eGFR > 60.00
[2024-01-26 07:31] LABS: Hematocrit 43.6 % (39.0-52.0); Hemoglobin 14.2 g/dL (13.0-18.0); Mean Corp Hgb Conc. 32.6 g/dL (33.0-37.0); Mean Corpuscular Volume 85.8 fL (80.0-94.0); Mean Platelet Volume 10.7 fL (7.4-10.4); Platelet Count 199 10^3/uL (130-400); Red Blood Cell Count 5.08 10^6/uL (4.70-6.10); Red Cell Dist. Width 13.4 % (11.5-14.5); White Blood Cell Count 5.4 10^3/uL (4.8-10.8)
[2024-01-26 07:37] LABS: Glucose - Point of Care 78 mg/dl (70-99)
[2024-01-26 07:44] VITALS: BP 161/82
[2024-01-26] MEDS: VITAMIN D3 (cholecalciferol) 25 MCG PO (07:53)
[2024-01-26] MEDS: PEPCID 20 MG PO (07:53)
[2024-01-26] MEDS: ASPIR LOW (ENTERIC COATED) 81 MG PO (07:53)
[2024-01-26] MEDS: COZAAR 50 MG PO (07:53)
[2024-01-26] MEDS: OCUVITE SOFTGEL 1 CAP PO (07:53)
[2024-01-26] MEDS: VITAMIN B-12 1000 MCG PO (07:53)
[2024-01-26] MEDS: CYMBALTA DELAYED RELEASE 20 MG PO (07:55)
--- NOTE | 2024-01-26 09:26 | W.PN.HOSP.TC ---
Addendum entered and electronically signed by Ravinder Barajas MD 01/26/24 10:59:
I saw and evaluated the patient. I reviewed the resident�s note and agree with findings and plan as documented in the resident�s note.
No new complaints
No acute stress, awake alert
Review rate and rhythm, normal S1-S2
Clear to auscultation bilaterally
Right lower extremity with ulcer in the distal medial leg that is clean-based. The bandage has some purulent discharge. There is very minimal surrounding cellulitis
Right lower extremity cellulitis:
-Continue IV vancomycin today and likely switch to oral antibiotics tomorrow
-Once switched to oral antibiotics will give prophylactic oral vancomycin
Original Note:
Today's Communication/Plan
-
continue vanc, wound care, PT/OT
Assessment / Plan
Assessment / Plan
89yo M with PMH HTN, CHpEF, chronic venous insufficiency, history of cdiff s/p treatment, who presented from home to urgent care, and was sent to ED 01/24 for swelling of right lower extremity and wound. In ED he received vanc/zosyn.
Superficial wound of right lower leg
Nonsuppurative cellulitis around wound
Chronic LE edema and venous insufficiency
- Superficial wound with no purulence or fluctuance, denies injury to area
- DVT ruled out with peripheral vascular ultrasound. Suspect asymmetric edema R>L is secondary to cellulitis.
- Physical exam improving compared to on admission
- Afebrile, no leukocytosis.
- MRSA screening pending
- Wound care consult while here, and follow up with outpatient wound care
- PT/OT eval
- continue elevation of legs while in bed, compression wrap
- Continue vancomycin IV for now. Anticipate changing to PO at discharge for total of 5 days of antibiotics for cellulitis.
History of cdiff
- monitor stool consistency- consider cdiff stool testing if patient develops diarrhea
- can give prophylactic oral vanc after finishing course of antibiotics
HTN
- asymptomatic severe hypertension on admission, BP 199/85 in ER
- not on antihypertensive medications at home
- s/p 10mg hydralazine in ED. Continue IV hydralazine 10mg q4h prn for SBP > 160.
- BP today 161/82, systolic range 133-214
- Continue losartan 50mg qd, started this admission.
- monitor BP and will reassess antihypertensives as needed
CHFpEF
- not in excacerbation
- most recent echo 01/22/24: LV EF 65-70%, mild concentric LV hypertrophy, no regional wall motion abnormalities; bioprosthetic aortic valve replacement, trace mitral/tricuspid regurg
- 2g Na diet
- daily weights
?diabetes
- A1C 6.5 outpatient, not on any diabetic medications
- recheck A1C here pending. Recent POC BG 78-112
- Continue POC BG AC/HS and low insulin sliding scale
- diabetic diet
HLD- continue home atorvastatin
CAD- continue home aspirin and atorvastatin
aortic stenosis s/p AVR (bovine valve)
atherosclerosis of both carotid arteries
first degree AV block
code status: DNR
patient has advanced directive, instructed to bring it in
MDM if needed: daughter Regla
VTE ppx: lovenox 40 sc qpm
diet: 2g Na, diabetic
dispo planning: pending PT/OT eval
Anticipated Discharge: 24 - 48 hours
Subjective/Interval History
-
Date of Service: January 26, 2024
No acute events overnight. His only complaint is using the urinal, so he has been drinking less than usual. No pain, fevers, chills. He denies lightheadedness, dizziness, chest pain, shortness of breath, nausea, vomiting, abdominal pain, diarrhea,
constipation. Last bowel movement was yesterday prior to hospitalization, no black or bloody stools.
Objective Data
-
Labs:
Laboratory Results
09/16/24
06:10
WBC 5.4
Hgb 14.2 D
Hct 43.6
Plt Count 199
Sodium 143
Potassium 3.9
Chloride 101
Carbon Dioxide 29
BUN 24 H
Creatinine 0.8
Glucose 107 H
Calcium 10.4 H
Vital Signs:
Vital Signs
Temp Pulse Resp BP Pulse Ox
97.3 F 74 16 161/82 97
01/26/24 07:44 01/26/24 07:53 01/26/24 07:44 01/26/24 07:53 01/26/24 07:44
I&O
01/25/24 01/26/24 01/27/24
06:59 06:59 06:59
Intake Total 240 / 240
Output Total 500 / 500
Balance -260 / -260
Review of Systems
-
History Source: Patient
All other systems: Reviewed and negative
Physical Exam
-
General: Well Developed, Well Nourished, No Apparent Distress, Comfortable and Other (appears stated age)
HEENT: Normocephalic, Atraumatic and Other (right lateral eye redness)
Respiratory: Clear to Auscultation and Non Labored Respirations
Cardiac: Regular Rhythm and S1/S2; Negative Murmur
GI: Soft, Nontender, Nondistended and Normal Bowel Sounds
Musculoskeletal: No Cyanosis and Edema, Right Lower Extrem
Skin: Warm, Dry and Ulcers (superficial venous ulcer right calf covered by optifoam dressing; surrounding erythema)
Neuro: Awake, Alert, Oriented and Nonfocal/Grossly Intact
Psych: Calm, Intact Judgement/Insight and Apparent Dementia
Data Reviewed
-
Ultrasound: Report Reviewed by me and Discussed with Physician
Labs: Labs Reviewed by me and Discussed with Physician
[2024-01-26 09:30] VITALS: BP 188/91; PULSE 66; O2SAT 100
[2024-01-26 09:32] VITALS: BP 188/91; PULSE 66; O2SAT 100
[2024-01-26] MEDS: APRESOLINE 10 MG IV (10:09)
[2024-01-26 11:17] VITALS: BP 138/63
[2024-01-26 12:02] LABS: Glycohemoglobin (HgbA1c) 5.9 % (4.0-5.6)
[2024-01-26 12:16] LABS: Glucose - Point of Care 113 mg/dl (70-99)
--- NOTE | 2024-01-26 12:20 | CM ---
Addendum entered by ED Ramirez 01/26/24 13:02:
NAUN spoke to son Fabien. He said he and 2 sisters in area are trying to think of next steps for patient. Fabien reports patient has medic alert but does not know how to use it. He has fallen at homes a few times. We discussed options for SNF short
term rehab and [email or web address] [place] compare sight. ALso discussed [facility] and other assisted living facilities. Fabien would like referrals to [facility] and [facility] for short term rehab and he will start to look at [place] for his father. Referrals send
in allscripts with [facility] for sNFs.
Original Note:
CM discussed patient's progress with OT and PT.CM met with patient who prefers to go directly home. When asked if someone could come stay with him he said a friend. Also discussed snf rehab. Patient was at [facility] in past. He hopes to go right home. He
had difficulty answering questions about past home care services. He did agree to Cm speaking to son.
--- NOTE | 2024-01-26 12:51 | PHA.VAN.IN ---
Assessment
- Assessment
Renal Function: Appears similar to baseline
AUC Dosing Plan
- Dosing Variables
Dosing Weight (kg): 81
Dosing CrCl (ml/min): 59
Vd coefficient (L/kg): 0.7
- Empiric Dosing
Initial / Loading Dose: 1500 mg given 01/25/24 15:14
Maintenance Regimen: 1500 mg q24h - first dose now, then daily @0600
Estimated AUC (mcg*h/mL): 516
Estimated Peak (mcg*h/mL): 36.6
Estimated Trough (mcg/ml): 11
Estimated Half Life (H): 13
- Monitoring
No levels ordered at this time: consider levels when pt reaches steady state
Pharmacokinetics Vancomycin I
- -
Patient Age: 89
Patient Sex: Male
Vancomycin Day #: 1
Indication: Skin And Soft Tissue
Requesting Provider: resident Portia
Pertinent Antimicrobial Allergies:
oxycodone, tramadol
Height / Weight:
Height 5 ft 7 in
Actual Weight 81.1 kg
- Vital Signs / Lab Results
Temp Pulse Resp BP Pulse Ox
97.3 F 74 18 138/63 100
01/26/24 11:17 01/26/24 11:17 01/26/24 11:17 01/26/24 11:17 01/26/24 11:17
Lab Results - Hematology
01/25/24 01/26/24
11 06:10
WBC 4.3 L 5.4
Lab Results - Chemistry
01/25/24 01/26/24
11: 06:10
BUN 25 H 24 H
Creatinine 0.9 0.8
Estimated Creat Clear 52 59
Albumin 3.7
[2024-01-26] MEDS: VANCOCIN 300 ML IV (13:32)
[2024-01-26] MEDS: VANCOCIN 300 MG IV (13:32)
[2024-01-26 15:00] VITALS: BP 107/50
--- NOTE | 2024-01-26 15:10 | WOUNDNOTE ---
[facility] RN note: Patient admitted with Right LE Cellulitis
See H&P for complete history.
PMH: CHF, HTN, UC, possible diabetes
Wound Location and type/assessment: Patient admitted with and right leg posterior leg wound. Wound is painful when touch, no odor noted, serosanguineous drainage. Patient reports that wound developed rapidly. Patient is awake and alert, and per
chart review independent in ADL's. He reports wearing 'compression socks' at home. Sacrum and heels intact.
Appetite: Good
Pressure redistribution devices in place: Vers[employer] Accumax
Plan: Local wound care provided as ordered. Suggested to patient that he follow up at [facility]. NAIMA wrap applied as ordered. DUONG shrestha. Will confirm orders with hospitalist.
Recommend follow up at wound care center upon discharge.
[2024-01-26 17:00] LABS: Glucose - Point of Care 77 mg/dl (70-99)
[2024-01-26] MEDS: LOVENOX 40 MG SC (17:06)
[2024-01-26] MEDS: LIPITOR 80 MG PO (17:06)
[2024-01-26 21:25] LABS: Glucose - Point of Care 78 mg/dl (70-99)
[2024-01-26 22:59] VITALS: BP 174/85
[2024-01-27 02:31] VITALS: BP 154/72
[2024-01-27] MEDS: VANCOCIN 300 MG IV (05:57)
[2024-01-27] MEDS: VANCOCIN 300 ML IV (05:57)
[2024-01-27 06:34] VITALS: BMI 26.5
[2024-01-27 06:50] LABS: Hematocrit 40.2 % (39.0-52.0); Hemoglobin 13.3 g/dL (13.0-18.0); Mean Corp Hgb Conc. 33.1 g/dL (33.0-37.0); Mean Corpuscular Hgb 28.4 pg (27.0-31.0); Mean Corpuscular Volume 85.7 fL (80.0-94.0); Mean Platelet Volume 10.6 fL (7.4-10.4); Platelet Count 177 10^3/uL (130-400); Red Blood Cell Count 4.69 10^6/uL (4.70-6.10); Red Cell Dist. Width 13.6 % (11.5-14.5); White Blood Cell Count 4.5 10^3/uL (4.8-10.8)
[2024-01-27 07:08] LABS: Blood Urea Nitrogen 25 mg/dl (9-20); Calcium 10.2 mg/dl (8.4-10.2); Carbon Dioxide 28 mmol/L (22-30); Chloride 103 mmol/L (98-107); Estimated Creatinine Clearance 67 ml/min; Glucose 94 mg/dl (70-99); Potassium 3.8 mmol/L (3.5-5.1); Sodium 142 mmol/L (135-145); eGFR > 60.00
--- NOTE | 2024-01-27 07:18 | W.PN.HOSP.TC ---
Addendum entered and electronically signed by Ravinder Barajas MD 01/27/24 08:51:
I saw and evaluated the patient. I reviewed the resident�s note and agree with findings and plan as documented in the resident�s note.
No new complaints
No acute stress, awake alert
remains Review rate and rhythm, normal S1-S2
Clear to auscultation bilaterally
CN2-12 intact
Right lower extremity with ulcer in the distal medial leg that is clean-based. There is minimal surrounding cellulitis
Right lower extremity cellulitis:
-Continue IV vancomycin today and likely switch to oral antibiotics tomorrow
-Once switched to oral antibiotics will give prophylactic oral vancomycin
Original Note:
Today's Communication/Plan
-
discharge to SNF when available
Assessment / Plan
Assessment / Plan
89yo M with PMH HTN, CHpEF, chronic venous insufficiency, history of cdiff s/p treatment, who presented from home to urgent care, and was sent to ED 01/24 for swelling of right lower extremity and wound. In ED he received vanc/zosyn.
Superficial wound of right lower leg
Nonsuppurative cellulitis around wound
Chronic LE edema and venous insufficiency
- Superficial wound with no purulence or fluctuance, denies injury to area
- DVT ruled out with peripheral vascular ultrasound. Suspect asymmetric edema R>L on admission was secondary to cellulitis.
- Physical exam significantly improved compared to on admission
- Afebrile, no leukocytosis.
- MRSA screening pending
- Wound care consulted- recommend following up with wound care center outpatient.
- PT/OT eval- recommend skilled rehab at discharge
- continue elevation of legs while in bed as needed
- Continue vancomycin IV for now. Anticipate changing to PO at discharge for total of 5 days of antibiotics for cellulitis.
History of cdiff
- monitor stool consistency- consider cdiff stool testing if patient develops diarrhea
- can give prophylactic oral vanc 125mg daily for duration of oral antibiotics plus 1 additional week
HTN
- asymptomatic severe hypertension on admission, BP 199/85 in ER
- not on antihypertensive medications at home- he reports his blood pressures were previously well controlled on lisinopril though he thinks someone from home care or visiting nursing told him to disconinue lisinopril
- s/p 10mg hydralazine x2 this admission. Continue IV hydralazine 10mg q4h prn for SBP > 160.
- BP today 170/98 before losartan. Systolic range past 24 hours 107-211. Recheck prior to administering hydralazine
- Continue losartan 50mg qd, started this admission.
- monitor BP and will reassess antihypertensives as needed
- Follow up with PCP outpatient
CHFpEF
- not in excacerbation
- most recent echo 01/22/24: LV EF 65-70%, mild concentric LV hypertrophy, no regional wall motion abnormalities; bioprosthetic aortic valve replacement, trace mitral/tricuspid regurg
- 2g Na diet
- daily weights
Prediabetes
- A1C 6.5 outpatient, not on any diabetic medications
- A1C on admission 5.9
- Recent POC BG 60-113
- Continue POC BG AC/HS and low insulin sliding scale prn. Has not required insulin administration.
- diabetic diet
- Follow up with PCP
HLD- continue home atorvastatin
CAD- continue home aspirin and atorvastatin
aortic stenosis s/p AVR (bovine valve)
atherosclerosis of both carotid arteries
first degree AV block
code status: DNR
patient has advanced directive, instructed to bring it in
MDM if needed: daughter Regla
VTE ppx: lovenox 40 sc qpm
diet: 2g Na, diabetic
dispo planning: SNF when available
Anticipated Discharge: Today
Subjective/Interval History
-
Date of Service: January 27, 2024
No acute events overnight. No complaints. He denies lightheadedness, dizziness, chest pain, shortness of breath, nausea, vomiting, diarrhea, constipation. He is tolerating PO diet. OOB yesterday with PT/OT requiring assistance and rolling walker.
Objective Data
-
Labs:
Laboratory Results
01/27/24
06:21
WBC 4.5 L
Hgb 13.3
Hct 40.2
Plt Count 177
Sodium 142
Potassium 3.8
Chloride 103
Carbon Dioxide 28
BUN 25 H
Creatinine 0.7
Glucose 94
Calcium 10.2
Vital Signs:
Vital Signs
Temp Pulse Resp BP Pulse Ox
98.0 F 82 16 154/72 98
01/26/24 22:59 01/26/24 22:59 01/26/24 22:59 01/27/24 02:31 01/26/24 22:59
I&O
01/26/24 01/27/24 01/28/24
06:59 06:59 06:59
Intake Total 240 / 240 830 / 830
Output Total 500 / 500 150 / 150
Balance -260 / -260 680 / 680
Review of Systems
-
History Source: Patient
All other systems: Reviewed and negative
Physical Exam
-
General: Well Developed, Well Nourished, No Apparent Distress, Comfortable, Conversant and Other (appears stated age)
HEENT: Normocephalic, Atraumatic and Other (right lateral eye redness)
Respiratory: Clear to Auscultation and Non Labored Respirations
Cardiac: Regular Rhythm and S1/S2
GI: Soft, Nontender, Nondistended and Normal Bowel Sounds
Musculoskeletal: No Cyanosis
Skin: Warm, Dry and Ulcers (superficial venous ulcer right calf covered by optifoam dressing, serosanguinous drainage, no purulence or fluctuance, clean base; minimal surrounding erythema, significatly improved)
Neuro: Awake, Alert, Oriented and Nonfocal/Grossly Intact
Psych: Calm, Intact Judgement/Insight and Apparent Dementia
Data Reviewed
-
Ultrasound: Report Reviewed by me and Discussed with Physician
Labs: Labs Reviewed by me and Discussed with Physician
[2024-01-27 07:24] VITALS: BP 211/97
[2024-01-27] MEDS: OCUVITE SOFTGEL 1 CAP PO (07:34)
[2024-01-27] MEDS: COZAAR 50 MG PO (07:34)
[2024-01-27] MEDS: VITAMIN D3 (cholecalciferol) 25 MCG PO (07:34)
[2024-01-27] MEDS: VITAMIN B-12 1000 MCG PO (07:34)
[2024-01-27] MEDS: PEPCID 20 MG PO (07:34)
[2024-01-27] MEDS: ASPIR LOW (ENTERIC COATED) 81 MG PO (07:35)
[2024-01-27] MEDS: CYMBALTA DELAYED RELEASE 20 MG PO (07:35)
[2024-01-27 08:07] LABS: Glucose - Point of Care 60 mg/dl (70-99)
[2024-01-27 08:44] LABS: Glucose - Point of Care 76 mg/dl (70-99)
[2024-01-27] MEDS: NORVASC 5 MG PO (10:41)
--- NOTE | 2024-01-27 11:50 | PHA.VAN.FU ---
Vancomycin Assessment / Plan
- Assessment
Renal Function: Stable
WBC's are: Stable
In the past 24 hrs, patient has been: Afebrile
- Dosing Plan
Continue: Vanc 1500mg Q24H
- Monitoring Plan
No level(s) ordered at this time: consider levels in next few days
- Follow Up
Pharmacy will continue to follow.
Vancomycin Follow UP
- -
Patient Age: 89
Patient Sex: Male
Vancomycin Day #: 2
Indication: Skin And Soft Tissue
Requesting Provider: resident Portia
Pertinent Antimicrobial Allergies:
no pertinent antibiotic allergies
Height / Weight:
Height 5 ft 7 in
Actual Weight 76.702 kg
- Vital Signs / Lab Results
Temp Pulse Resp BP Pulse Ox
97.5 F 66 18 134/61 98
01/27/24 07:24 01/27/24 07:24 01/27/24 07:24 01/27/24 10:41 01/27/24 07:24
Lab Results - Hematology
01/25/24 01/26/24 01/27/24
11: 06:10 06:21
WBC 4.3 L 5.4 4.5 L
Lab Results - Chemistry
01/25/24 01/26/24 01/27/24
11: 06:10 06:21
BUN 25 H 24 H 25 H
Creatinine 0.9 0.8 0.7
Estimated Creat Clear 52 59 67
Albumin 3.7
Microbiology Results
01/25/24 17:55 MRSA Screen - Final
Nose No Methicillin Resistant Staphylococcus aureus isolated.
[2024-01-27 12:06] LABS: Glucose - Point of Care 97 mg/dl (70-99)
[2024-01-27 13:06] VITALS: BP 162/86; BP 167/81; PULSE 67; O2SAT 99
--- NOTE | 2024-01-27 13:16 | CM ---
Addendum entered by ED Bryson 01/27/24 14:41:
Spoke with Kamille in admissions at [facility] who stated that she will have a bed for patient upon discharge but to call the am of the morning to just confirm that she has availability that day. Will call Kamille tomorrow in the morning.
Original Note:
No response has been received from facilities where referrals were sent. Placed a call to Kamille in admissions at [facility] who stated that she is checking on avilability and will return call. Will try [facility] is no availability at [facility].
Attending stated that d/c likely tomorrow.
Plan: Case management will continue to follow and assist with discharge planning. Transfer to SNF when stable.
[2024-01-27 15:30] VITALS: BP 116/58
[2024-01-27] MEDS: LIPITOR 80 MG PO (16:01)
[2024-01-27] MEDS: LOVENOX 40 MG SC (16:01)
[2024-01-27 16:50] LABS: Glucose - Point of Care 87 mg/dl (70-99)
[2024-01-27 21:22] LABS: Glucose - Point of Care 87 mg/dl (70-99)
[2024-01-27 23:06] VITALS: BP 156/83
[2024-01-28 05:01] VITALS: BMI 26.5
--- NOTE | 2024-01-28 05:04 | DOWNTIME ---
There was a [employer] Downtime on 01/28/2024 from 0100 to 01/28/2024 at 0300. Downtime documentation of patient's care, including medication administrations, has been reconciled in the electronic record per guidelines. Refer to the
patient's paper chart under the miscellaneous tab to see printed paper medication records and downtime forms.
[2024-01-28] MEDS: VANCOCIN 300 ML IV (06:05)
[2024-01-28] MEDS: VANCOCIN 300 MG IV (06:05)
[2024-01-28 06:41] LABS: Hematocrit 40.4 % (39.0-52.0); Hemoglobin 13.3 g/dL (13.0-18.0); Mean Corp Hgb Conc. 32.9 g/dL (33.0-37.0); Mean Corpuscular Hgb 27.3 pg (27.0-31.0); Mean Corpuscular Volume 82.8 fL (80.0-94.0); Mean Platelet Volume 10.3 fL (7.4-10.4); Platelet Count 181 10^3/uL (130-400); Red Blood Cell Count 4.88 10^6/uL (4.70-6.10); Red Cell Dist. Width 13.5 % (11.5-14.5); White Blood Cell Count 4.6 10^3/uL (4.8-10.8)
[2024-01-28 06:53] LABS: Blood Urea Nitrogen 26 mg/dl (9-20); Calcium 9.9 mg/dl (8.4-10.2); Carbon Dioxide 29 mmol/L (22-30); Chloride 102 mmol/L (98-107); Estimated Creatinine Clearance 59 ml/min; Glucose 97 mg/dl (70-99); Potassium 3.9 mmol/L (3.5-5.1); Sodium 142 mmol/L (135-145); eGFR > 60.00
[2024-01-28 07:05] VITALS: BP 168/79
[2024-01-28 08:09] LABS: Glucose - Point of Care 58 mg/dl (70-99)
[2024-01-28] MEDS: PEPCID 20 MG PO (08:18)
[2024-01-28] MEDS: COZAAR 50 MG PO (08:19)
[2024-01-28] MEDS: NORVASC 5 MG PO (08:19)
[2024-01-28] MEDS: CYMBALTA DELAYED RELEASE 20 MG PO (08:19)
[2024-01-28] MEDS: VITAMIN D3 (cholecalciferol) 25 MCG PO (08:19)
[2024-01-28] MEDS: VITAMIN B-12 1000 MCG PO (08:19)
[2024-01-28] MEDS: OCUVITE SOFTGEL 1 CAP PO (08:19)
[2024-01-28] MEDS: APRESOLINE 10 MG IV (08:31)
[2024-01-28 08:33] VITALS: BP 184/85
[2024-01-28] MEDS: ASPIR LOW (ENTERIC COATED) 81 MG PO (08:35)
[2024-01-28 08:39] LABS: Glucose - Point of Care 87 mg/dl (70-99)
--- NOTE | 2024-01-28 09:38 | CM ---
Addendum entered by ED Bryson 01/28/24 11:58:
Placed a call to patient's son, Lg to update about [facility] transfer. Had to leave a voice mail. Updated that patient will be transferring and that he is aware. Provided CM contact information in case he has any questions.
Addendum entered by Mayra Vazquez [facility] 01/28/24 11:54:
Discussed discharge with patient. He is agreeable to transport to [facility]. Reviewed IMM. Signed. Now on chart. Will update his family about transfer.
Original Note:
Spoke with Kamille in admissions at [facility] who confirmed bed availability for patient this morning. Messaged attending who confirmed that patient is medically cleared for discharge. Patient will be going to 4th floor at [facility]
# for report [phone] and # for fax [phone]
Will complete medical necessity as there are multiple examples in documentation that patient is forgetful and is easily confused. Will complete transfer sheet.
Attending updated.
Plan: Case management will continue to follow and assist with discharge planning. [facility].
--- NOTE | 2024-01-28 09:51 | W.PN.HOSP.TC ---
Addendum entered and electronically signed by Ravinder Barajas MD 01/28/24 10:04:
I saw and evaluated the patient. I reviewed the resident�s note and agree with findings and plan as documented in the resident�s note.
No new complaints
No acute stress, awake alert
RRR, normal S1-S2
remains Clear to auscultation bilaterally
CN2-12 intact
Right lower extremity with ulcer in the distal medial leg that is clean-based. There is very minimal surrounding cellulitis (improved from yesterday).
Right lower extremity cellulitis:
-was on IV Vanco, transition to PO abx on d/c with prophylactic PO Vanco
Pt's son updated at bedside.
Total time spent on d/c = 31 min. This included today's physical exam, progress note, review of laboratory and diagnostic data, preparation of discharge documents and prescriptions, and discussions about the pt's hospital course and discharge plan
with the patient and other medical secretary teacher involved in the patient's care.
Original Note:
Today's Communication/Plan
-
discharge to SNF when available
Assessment / Plan
Assessment / Plan
89yo M with PMH HTN, CHpEF, chronic venous insufficiency, history of cdiff s/p treatment, who presented from home to urgent care, and was sent to ED 01/24 for swelling of right lower extremity and wound. In ED he received vanc/zosyn.
Superficial wound of right lower leg
Nonsuppurative cellulitis around wound
Chronic LE edema and venous insufficiency
- Superficial wound with no purulence or fluctuance, denies injury to area
- DVT ruled out with peripheral vascular ultrasound. Suspect asymmetric edema R>L on admission was secondary to cellulitis.
- Physical exam significantly improved compared to on admission
- Afebrile, no leukocytosis.
- MRSA screening negative
- Wound care consulted- recommend following up with wound care center outpatient.
- PT/OT eval- recommend skilled rehab at discharge
- continue elevation of legs while in bed as needed
- S/p vancomycin IV x4 days.
- Stable for hospital discharge. Will send with 1 additional day of PO antibiotics (for total of 5 days) for treatment of cellulitis. CM involved in discharge planning for SNF placement
History of cdiff
- monitor stool consistency- consider cdiff stool testing if patient develops diarrhea
- can give prophylactic oral vanc 125mg daily for duration of oral antibiotics plus 1 additional week
HTN
- asymptomatic severe hypertension on admission, BP 199/85 in ER
- not on antihypertensive medications at home- he reports his blood pressures were previously well controlled on lisinopril though he thinks someone from home care or visiting nursing told him to disconinue lisinopril
- s/p 10mg hydralazine x3 this admission. Continue IV hydralazine 10mg q4h prn for SBP > 160.
- BP today 184/85 shortly after losartan this AM. Systolic range past 24 hours 116-184.
- Continue losartan 50mg qd, started this admission. Continue at discharge, follow up with PCP outpatient to reassess BP control
- monitor BP and will reassess antihypertensives as needed
- Follow up with PCP outpatient
CHFpEF
- not in excacerbation
- most recent echo 01/22/24: LV EF 65-70%, mild concentric LV hypertrophy, no regional wall motion abnormalities; bioprosthetic aortic valve replacement, trace mitral/tricuspid regurg
- 2g Na diet
- daily weights
Prediabetes
- A1C 6.5 outpatient, not on any diabetic medications
- A1C on admission 5.9
- Recent POC BG 58-87
- Continue POC BG AC/HS. Has not required insulin administration.
- diabetic diet
- Follow up with PCP
HLD- continue home atorvastatin
CAD- continue home aspirin and atorvastatin
aortic stenosis s/p AVR (bovine valve)
atherosclerosis of both carotid arteries
first degree AV block
code status: DNR
patient has advanced directive, instructed to bring it in
MDM if needed: daughter Regla
VTE ppx: lovenox 40 sc qpm
diet: 2g Na, diabetic
dispo planning: SNF when available
Anticipated Discharge: Today
Subjective/Interval History
-
Date of Service: January 28, 2024
No acute events overnight. No complaints. Denies lightheadedness, dizziness, chest pain, shortness of breath, nausea, vomiting, diarrhea, constipation. Denies pain is his leg or swelling.
Objective Data
-
Labs:
Laboratory Results
01/28/24
06:18
WBC 4.6 L
Hgb 13.3
Hct 40.4
Plt Count 181
Sodium 142
Potassium 3.9
Chloride 102
Carbon Dioxide 29
BUN 26 H
Creatinine 0.8
Glucose 97
Calcium 9.9
Vital Signs:
Vital Signs
Temp Pulse Resp BP Pulse Ox
97.4 F 67 16 184/85 98
01/28/24 07:05 01/28/24 08:33 01/28/24 07:05 01/28/24 08:33 01/28/24 07:05
I&O
01/27/24 01/28/24 01/29/24
06:59 06:59 06:59
Intake Total 830 / 830 1070 / 1070
Output Total 150 / 150
Balance 680 / 680 1070 / 1070
Review of Systems
-
History Source: Patient
All other systems: Reviewed and negative
Physical Exam
-
General: Well Developed, Well Nourished, No Apparent Distress, Comfortable, Conversant and Other (appears stated age)
HEENT: Normocephalic, Atraumatic and Other (right lateral eye redness improving)
Respiratory: Clear to Auscultation and Non Labored Respirations
Cardiac: Regular Rhythm and S1/S2
GI: Soft, Nontender, Nondistended and Normal Bowel Sounds
Musculoskeletal: No Cyanosis, No Edema and Other (bilateral lower extremities symmetric, RLE edema resolved)
Skin: Warm, Dry and Ulcers (superficial ulcer right calf covered by optifoam dressing, serosanguinous drainage, no purulence or fluctuance, clean base; minimal surrounding erythema, significantly improved)
Neuro: Awake, Alert, Oriented and Nonfocal/Grossly Intact
Psych: Calm, Intact Judgement/Insight and Apparent Dementia
Data Reviewed
-
Ultrasound: Report Reviewed by me and Discussed with Physician
Labs: Labs Reviewed by me and Discussed with Physician
[2024-01-28 12:00] VITALS: BP 142/74
[2024-01-28 12:07] LABS: Glucose - Point of Care 66 mg/dl (70-99)
[2024-01-28 12:23] LABS: Glucose - Point of Care 108 mg/dl (70-99)
--- NOTE | 2024-01-28 15:08 | W.DCSUMMARY ---
Discharge Summary
Discharge Data
Date of Admission: 01/25/24
Date of Discharge: 01/28/24
-
Pending Results: No
Hospital Course
Discharging Physician : Dr. Pearce, Dr. Barajas
Disposition : SNF
Primary care physician : Pat De La O
Principal Discharge diagnosis : Right lower extremity cellulitis, superficial wound
Chronic Discharge diagnosis : Chronic venous insufficiency, hypertension, chronic heart failure preserved ejection fraction, prediabetes, hyperlipidemia, coronary artery disease, aortic stenosis s/p AVR (bovine valve), carotic atherosclerosis, 1st
degree AV block, history of cdiff
Hospital Course : Presented to ED for right lower leg swelling, erythema, and wound. Peripheral vasc ultrasound ruled out DVT. His cellulitis was treated with IV antibiotics and his superficial wound was treated with local wound care. Wound care,
PT/OT consulted. His blood pressures were elevated and he was started on antihypertensive medications including losartan and amlodipine. On day of discharge he was stable. He was discharged to SNF with oral antibiotics as well as prophylactic oral
vancomycin given history of cdiff.
Important imaging findings :
Periph vasc US 01/24
IMPRESSION:
1. No sonographic evidence for lower extremity venous thrombosis.
2. Severe diffuse subcutaneous edema throughout the right lower leg.
Procedure findings : N/A
Discharge Plan
-
Patient Disposition: [facility]/SNF
Discharge Diagnosis/Procedures: Right lower extremity cellulitis, superficial wound
Condition: Good
Diet: 2 Gram Sodium and Diabetic, Carb Controlled
Activity: With assistance and With Walker
Driving Restrictions: No driving
Bathing Restrictions: OK to Shower
Other Services: PT and OT
Activity Restrictions/Additional Instructions:
Wound Care Instructions Right lower leg wound- Clean with normal saline, wound cleanser or soap and water. Apply Xeroform gauze and silicone foam dressing. Change daily and PRN if loose or soiled.
NAIMA wrap or other compression that you use at home to Right leg daily
Follow up at wound care center call for an appointment.
Instructions: Preventing falls in adults, Taking care of cuts, scrapes, and puncture wounds, DASH diet, Cellulitis (skin infection) in adults - Discharge instructions, BLOOD PRESSURE
Referrals:
Pat De La O MD [Family Provider] - in less than 1 week (Call your Primary Care Provider to schedule an appointment within 1 week of hospital discharge.)
Additional Discharge Medication Instructions: New medications:
- Amlodipine (5mg tablet): Take 1 tablet once per day
- Losartan (50mg tablet): Take 1 tablet once per day
- Cephalexin (500mg capsule): Take 1 capsule every 6 hours for 4 days (01/28-01/31, then stop)
- Vancomycin (125mg capsule): Take 1 capsule once per day for 11 days (01/28-02/07, then stop)
Follow up with your Primary Care Provider within 1 week to follow up after hospital discharge and recheck your blood pressure. Ask your Primary Care Provider about medication refills or changes.
Prescriptions:
New
losartan 50 mg Tablet
50 mg PO DAILY Qty: 30 0RF
amlodipine 5 mg Tablet
5 mg PO DAILY Qty: 30 0RF
cephalexin 500 mg capsule
500 mg PO Q6H 4 Days Qty: 16 0RF
vancomycin [Vancocin] 125 mg capsule
125 mg PO QDAY 11 Days Qty: 11 0RF
Continued
atorvastatin [Lipitor] 80 mg Tablet
80 mg PO QPM
cyanocobalamin (vitamin B-12) 1,000 mcg Tablet
1,000 mcg PO DAILY
aspirin 81 mg Tablet,Delayed Release (Dr/Ec)
81 mg PO DAILY
duloxetine [Cymbalta] 20 mg Capsule,Delayed Release(Dr/Ec)
20 mg PO DAILY
cholecalciferol (vitamin D3) [Vitamin D3] 25 mcg (1,000 unit) Tablet
25 mcg PO DAILY
PreserVision AREDS 2,148 mcg-113 mg-45 mg-17.4mg Tablet
1 tab PO DAILY
omeprazole 40 mg Capsule,Delayed Release(Dr/Ec)
40 mg PO DAILY
Discharge Orders:
Discharge Patient (As Directed); Ordered 01/28/24
Ordered By: Adrianne Pearce
Discharge Date and Time
Discharge Date/Time: 01/28/24 13:03
Print Language: DOMINICAN
== END 2024-01-28 13:03 | DRG 603 ==
LOC: 3 WEST ACU 15:24
PROVIDERS: Student in an Organized Health Care Education/Training Program; ADMITTING PHYSICIAN Hospitalist; ATTENDING PHYSICIAN Internal Medicine; EMERGENCY PHYSICIAN Emergency Medicine; FAMILY PHYSICIAN Internal Medicine
DX: L03.115 Cellulitis of right lower limb (principal); I50.30 Unspecified diastolic (congestive) heart failure; Z87.891 Personal history of nicotine dependence; I11.0 Hypertensive heart disease with heart failure; I25.10 Atherosclerotic heart disease of native coronary artery without angina pectoris; Z79.82 Long term (current) use of aspirin; Z66 Do not resuscitate; E78.00 Pure hypercholesterolemia, unspecified
CPT/HCPCS: 80048; 80053; 82962; 83036; 83880; 84484; 85025; 85027; 87070; 93005; 93306; 93970; 96365; 96375; 97116; 97163; 97166; 97530; 99285

== ENCOUNTER → 2024-03-01 11:39 | Outpatient (REF) | payer MEDICARE, BC, SELFPAY ==
[2024-03-01 16:19] LABS: % Basophils 0.8 % (0-2); % Eosinophils 5.4 % (0-6); % Immature Granulocytes 0.2 % (0-0.5); % Lymphocytes 17.4 % (20.5-51.1); % Monocytes 11.4 % (1.7-9.3); % Neutrophils 64.8 % (42.2-75.2); Absolute Eosinophils 0.3 10^3/uL (0-0.7); Absolute Lymphocytes 0.8 10^3/uL (1.2-3.4); Absolute Monocytes 0.6 10^3/uL (0.1-0.6); Absolute Neutrophils 3.1 10^3/uL (1.4-6.5); Hematocrit 33.6 % (39.0-52.0); Mean Corp Hgb Conc. 32.7 g/dL (33.0-37.0); Mean Corpuscular Hgb 28.1 pg (27.0-31.0); Mean Corpuscular Volume 85.9 fL (80.0-94.0); Mean Platelet Volume 11.6 fL (7.4-10.4); Nucleated Red Blood Cells % 0 % (-); Platelet Count 176 10^3/uL (130-400); Red Blood Cell Count 3.91 10^6/uL (4.70-6.10); Red Cell Dist. Width 15.3 % (11.5-14.5); White Blood Cell Count 4.8 10^3/uL (4.8-10.8)
[2024-03-01 17:35] LABS: ALT (SGPT) 22 U/L (0-50); AST (SGOT) 26 U/L (17-59); Albumin 3.8 g/dl (3.5-5.0); Alkaline Phosphatase 73 U/L (38-126); Blood Urea Nitrogen 35 mg/dl (9-20); Calcium 9.8 mg/dl (8.4-10.2); Carbon Dioxide 28 mmol/L (22-30); Chloride 103 mmol/L (98-107); Glucose 99 mg/dl (70-99); HDL Cholesterol 50 mg/dl; LDL Cholesterol, Calculated 55 mg/dl; Potassium 4.5 mmol/L (3.5-5.1); Sodium 141 mmol/L (135-145); Total Bilirubin 0.4 mg/dl (0.2-1.3); Total Cholesterol 117 mg/dl (50-199); Total Protein 5.9 g/dl (6.3-8.2); Triglyceride 64 mg/dl (10-149); Very Low Density Lipoprotein 12 mg/dl (0-30); eGFR > 60.00
[2024-03-02 09:02] LABS: Glycohemoglobin (HgbA1c) 6.1 % (4.0-5.6)
== END ==
LOC: HWLAB 11:39
PROVIDERS: ATTENDING PHYSICIAN Internal Medicine
DX: E78.2 Mixed hyperlipidemia (principal); R79.89 Other specified abnormal findings of blood chemistry; Z87.2 Personal history of diseases of the skin and subcutaneous tissue
CPT/HCPCS: 36415; 80053; 80061; 83036; 85025

== ENCOUNTER → 2024-03-23 08:46 | Outpatient (REF) | payer MEDICARE, BC, SELFPAY | LOC: RAD 08:46 | PROVIDERS: ATTENDING PHYSICIAN Surgery Vascular Surgery; FAMILY PHYSICIAN Internal Medicine | DX: R60.0 Localized edema (principal); I73.9 Peripheral vascular disease, unspecified; I65.21 Occlusion and stenosis of right carotid artery | CPT/HCPCS: 93880; 93922; 93925; 93970 ==